=== PATIENT | male | born 1950 | race Caucasian/White ===

== ENCOUNTER 2017-11-19 12:42 | Emergency (ER) | payer MEDICARE, OTHER ==
[2017-11-19 13:13] LABS: BASO # 0.1 10^3/uL (0.0-0.2); BASO % 0.6 % (0.0-1.0); EOS % 0.5 % (0.0-3.0); IMMATURE GRANULOCYTE % 0.1 % (0-0); LYMPH # 1.6 10^3/uL (1.5-4.5); LYMPH % 19.6 % (24.0-44.0); MEAN CORPUSCULAR HEMOGLOBIN 30.6 pg (27.0-33.0); MEAN CORPUSCULAR HGB CONC 33.4 g/dl (32.0-36.5); MEAN CORPUSCULAR VOLUME 91.7 fl (80.0-96.0); MONO # 0.9 10^3/uL (0.0-0.8); MONO % 11.6 % (0.0-5.0); NEUTROPHILS # 5.4 10^3/uL (1.8-7.7); NEUTROPHILS % 67.6 % (36.0-66.0); PLATELET COUNT, AUTOMATED 262 10^3/uL (150-450); RED CELL DISTRIBUTION WIDTH 13.4 % (11.5-14.5)
[2017-11-19] MEDS: ONDANSETRON 4MG/2ML VIAL (J2405) IV (13:19)
[2017-11-19] MEDS: MORPHINE 4 MG/ML 1ML SYRINGE IV (13:19)
[2017-11-19 13:42] LABS: ANION GAP 8 MEQ/L (8-16); BLOOD UREA NITROGEN 10 MG/DL (7-18); CALCIUM LEVEL 8.9 MG/DL (8.8-10.2); CARBON DIOXIDE LEVEL 30 MEQ/L (21-32); CHLORIDE LEVEL 100 MEQ/L (98-107); CREATININE FOR GFR 0.87 MG/DL (0.70-1.30); GLOMERULAR FILTRATION RATE > 60.0 (>49); GLUCOSE, FASTING 185 MG/DL (80-110); POTASSIUM SERUM 3.4 MEQ/L (3.5-5.1); SODIUM LEVEL 138 MEQ/L (136-145)
[2017-11-19] MEDS: KETOROLAC 30 MG/ML VIAL (J1885) IV (14:15)
== END 2017-11-19 14:36 | disposition home or self-care (01) ==
LOC: M ED 12:42
DX: S46.912A Strain of unspecified muscle, fascia and tendon at shoulder and upper arm level, left arm, initial encounter (principal); X58.XXXA Exposure to other specified factors, initial encounter; Y92.9 Unspecified place or not applicable; Y93.9 Activity, unspecified; Z85.038 Personal history of other malignant neoplasm of large intestine; Z92.21 Personal history of antineoplastic chemotherapy; I51.9 Heart disease, unspecified; E11.9 Type 2 diabetes mellitus without complications; I10 Essential (primary) hypertension; E78.5 Hyperlipidemia, unspecified; Z87.891 Personal history of nicotine dependence; Z82.49 Family history of ischemic heart disease and other diseases of the circulatory system; Z79.84 Long term (current) use of oral hypoglycemic drugs; Z79.899 Other long term (current) drug therapy; Z91.041 Radiographic dye allergy status; Z91.89 Other specified personal risk factors, not elsewhere classified
CPT/HCPCS: J2405

== ENCOUNTER 2018-03-05 16:07 | Emergency (ER) | payer MEDICARE, OTHER ==
[2018-03-05] MEDS: NS 1,000 ML IV (16:45)
[2018-03-05 16:51] LABS: BASO % 0.4 % (0.0-1.0); EOS # 0.1 10^3/uL (0.0-0.50); HEMATOCRIT 46.7 % (42.0-52.0); HEMOGLOBIN 15.8 g/dl (13.5-17.5); IMMATURE GRANULOCYTE % 0.2 % (0-3.0); LYMPH # 2.3 10^3/uL (1.5-4.5); LYMPH % 25.5 % (24.0-44.0); MEAN CORPUSCULAR HEMOGLOBIN 31.5 pg (27.0-33.0); MEAN CORPUSCULAR HGB CONC 33.8 g/dl (32.0-36.5); MONO # 0.8 10^3/uL (0.0-0.8); MONO % 9.2 % (0.0-5.0); NEUTROPHILS # 5.7 10^3/uL (1.8-7.7); NEUTROPHILS % 63.7 % (36.0-66.0); PLATELET COUNT, AUTOMATED 257 10^3/uL (150-450); RED BLOOD COUNT 5.02 10^6/uL (4.30-6.10); RED CELL DISTRIBUTION WIDTH 13.5 % (11.5-14.5); WHITE BLOOD COUNT 8.9 10^3/uL (4.0-10.0)
[2018-03-05] MEDS: VERAPAMIL HCL 5 MG/2 ML VIAL IV ×2 (16:53→18:28)
[2018-03-05] MEDS: ASPIRIN 81 MG CHEW TABLET PO (16:53)
[2018-03-05 17:06] LABS: INR 1.13; PROTHROMBIN TIME 14.7 SECONDS (12.4-14.5)
[2018-03-05 17:23] LABS: ALBUMIN 4.1 GM/DL (3.2-5.2); ALKALINE PHOSPHATASE 75 U/L (45-117); ALT/SGPT 32 U/L (12-78); ANION GAP 7 MEQ/L (8-16); AST/SGOT 22 U/L (7-37); BILIRUBIN,DIRECT 0.2 MG/DL (0.0-0.2); BILIRUBIN,TOTAL 0.5 MG/DL (0.2-1.0); BLOOD UREA NITROGEN 22 MG/DL (7-18); CALCIUM LEVEL 9.3 MG/DL (8.8-10.2); CARBON DIOXIDE LEVEL 30 MEQ/L (21-32); CHLORIDE LEVEL 103 MEQ/L (98-107); CPK CREATINE PHOSPHOKINASE 241 U/L (39-308); CREATININE FOR GFR 1.09 MG/DL (0.70-1.30); GLOMERULAR FILTRATION RATE > 60.0 (>49); GLUCOSE, FASTING 118 MG/DL (70-100); POTASSIUM SERUM 3.5 MEQ/L (3.5-5.1); SODIUM LEVEL 140 MEQ/L (136-145); TOTAL PROTEIN 8.2 GM/DL (6.4-8.2); TROPONIN I < 0.02 NG/ML (< 0.10)
[2018-03-05 17:28] LABS: CK-MB VALUE MASS 3.7 NG/ML (<3.6); MB/CK RELATIVE INDEX 1.53 (< OR =4)
[2018-03-05] MEDS: DIGOXIN INJ 0.5 MG/2 ML AMP (J1160) IV (18:28)
== END 2018-03-05 20:31 | disposition home or self-care (01) ==
LOC: M ED 16:07
DX: I49.9 Cardiac arrhythmia, unspecified (principal); I48.0 Paroxysmal atrial fibrillation; I48.92 Unspecified atrial flutter; I10 Essential (primary) hypertension; Z82.49 Family history of ischemic heart disease and other diseases of the circulatory system; Z79.84 Long term (current) use of oral hypoglycemic drugs; Z79.899 Other long term (current) drug therapy; Z91.041 Radiographic dye allergy status; Z91.89 Other specified personal risk factors, not elsewhere classified
CPT/HCPCS: J1160

== ENCOUNTER → 2018-09-01 | Outpatient (CLI) | payer MEDICARE, OTHER ==
[2018-09-01 13:01] LABS: DIGOXIN LEVEL 0.9 NG/ML (0.5-2.0)
== END ==
LOC: M LAB 11:24
DX: I48.0 Paroxysmal atrial fibrillation (principal)
CPT/HCPCS: 80162

== ENCOUNTER → 2019-01-26 | Outpatient (CLI) | payer MEDICARE, OTHER ==
[~2019-01-26] MED LIST: /ADVA50050 IN; /ADVA50050 INH; /ESOM40CA OR; /ESOM40CA PO; /FEXO18TA OR; /FEXO18TA PO; /MOXI40TA OR; /QUIN20TA OR; /QUIN20TA PO; ACIDCAP; ACIDCAP OR; ACIDCAP PO; ALB INH; ALBU83IN INH; ALBUTEROL INH; ASPI325T PO; ASPI650T2 OR; ATROVENT; CARI1TAB7 PO; CELE1CAP88 PO; CEPH500C PO; CIAL20TA OR; COLA100C2 OR; COLA100C2 PO; COUM10TA PO; DARV100T OR; DEXTROMETHORPHAN PO; DIGI1TAB3 PO; DUO; DUONSOL INH; ENOX40SY SC; FISH1000 PO; LASI40TA9 PO; LEVA12INH INH; LOSA50TA88 PO; METF500T13 PO; MIRALEX; MIRALEX OR; NASONEX; NATU400T PO; PRED10TA2 OR; PRED20TA OR; PRED20TAB PO; PRED5TAB OR; SENN8.6T14 OR; SING10TA31 OR; SING10TA31 PO; SOMA350T OR; TESS100C OR; VERA120T OR; VERA120T PO; VICO5TAB PO; VIT D 2000 OR; VITA-182 PO; VITA400C OR; VITA500T PO; XARE20TA PO; [UNRECOGNIZED DRUG - CODE] PO
[2019-01-26 16:50] LABS: BASO % 0.3 % (0.0-1.0); EOS % 0.3 % (0.0-3.0); HEMATOCRIT 41.3 % (42.0-52.0); HEMOGLOBIN 13.1 g/dl (13.5-17.5); LYMPH # 1.9 10^3/uL (1.5-4.5); LYMPH % 19.5 % (24.0-44.0); MEAN CORPUSCULAR HEMOGLOBIN 29.6 pg (27.0-33.0); MEAN CORPUSCULAR HGB CONC 31.7 g/dl (32.0-36.5); MEAN CORPUSCULAR VOLUME 93.2 fl (80.0-96.0); MONO # 1.2 10^3/uL (0.0-0.8); MONO % 12.6 % (0.0-5.0); NEUTROPHILS # 6.5 10^3/uL (1.8-7.7); PLATELET COUNT, AUTOMATED 291 10^3/uL (150-450); RED BLOOD COUNT 4.43 10^6/uL (4.30-6.10); WHITE BLOOD COUNT 9.6 10^3/uL (4.0-10.0)
[2019-01-26 20:11] LABS: ERYTHROCYTE SEDIMENTATION RATE 43 mm/hr (0-20)
== END ==
LOC: M LAB 16:08
PROVIDERS: ATTEND Orthopaedic Surgery
DX: L03.113 Cellulitis of right upper limb (principal)

== ENCOUNTER 2020-01-10 10:00 | Day surgery (SDC) | payer MEDICARE, OTHER ==
[~2020-01-10] VITALS: Ht 177.8 cm; Wt 140.3 kg
[~2020-01-10 10:00] MED LIST changes: -/ADVA50050 IN; -/ADVA50050 INH; -/ESOM40CA OR; -/ESOM40CA PO; -/MOXI40TA OR; -/QUIN20TA OR; -/QUIN20TA PO; +ACCU1TAB2 OR; +ACCU1TAB2 PO; +ADV500INH INH; +ADVA1AER2 IN; +ADVA1AER2 INH; +ALLE180T33 PO; +ASPI-1 PO; -ASPI325T PO; +ATEN25TA PO; +AVEL1TAB2 OR; +CLEAPOW10 PO; +DIGO0.259 PO; -ENOX40SY SC; +FERR325T3 PO; +FLEC150T PO; +HM V4000 PO; +HYDR-3713 PO; +LIDOCAINE 2% INJ 100 MG/5 ML SDV (FOR ANES.) As Ordered ONE; +LOVA10TA PO; +LOVE1INJ SC; +MM S100C PO; +MOME50SP; +NEXI1CAP3 OR; +NEXI1CAP3 PO; +NEXI40CA PO; +NS 1,000 ML IV ONE; +OPTI0.5D5 OP; +PROAAER10 INH; +SING10TA32 PO; +SOMA350T PO; +SPIR-10 PO; +VERA120C PO; +VERA120T9 PO; +VITA100T29 PO; +VITA100T59 PO; +VITA400T26 PO; +ZOLO100T PO; +propofoL 500 MG/50 ML VIAL As Ordered ONE
--- NOTE | 2020-01-10 12:14 | ROOR ---
Patient Name: Ambrosio Aguillon Procedure Date: 01/10/2020 11:46 AM Date of : 1950 Age: 69 Room: [facility] Gender: Male Note Status: Finalized Procedure: Upper Endoscopy + Biopsies Indications: Unexplained iron deficiency anemia Providers: Newton Saunders MD Referring MD: Cole Gregorio MD Requesting Provider: Medicines: Monitored Anesthesia Care Complications: No immediate complications. Procedure: Pre-Anesthesia Assessment: - The heart rate, respiratory rate, oxygen saturations, blood pressure, adequacy of pulmonary ventilation, and response to care were monitored throughout the procedure. The Endoscope was introduced through the mouth, and advanced to the second part of duodenum. The upper GI endoscopy was accomplished without difficulty. The patient tolerated the procedure well. Findings: The Z-line was regular and was found 40 cm from the incisors. Multiple biopsies were obtained with cold forceps for evaluation to rule out Teague's Esophagus randomly at the gastroesophageal junction. Multiple small pedunculated and sessile fundic gland polyps with no bleeding and no stigmata of recent bleeding were found on the greater curvature of the stomach. Biopsies were taken with a cold forceps for Helicobacter pylori testing. The exam of the duodenum was otherwise normal. Biopsies for histology were taken with a cold forceps in the first portion of the duodenum for evaluation of celiac disease. The exam was otherwise without abnormality. Impression: - Z-line regular, 40 cm from the incisors. - Multiple fundic gland polyps. Resected and retrieved. Biopsied. - The examination was otherwise normal. - Multiple biopsies were obtained at the gastroesophageal junction. - Biopsies were taken with a cold forceps for evaluation of celiac disease. - The examination was otherwise normal. Recommendation: - Patient has a contact number available for emergencies. The signs and symptoms of potential delayed complications were discussed with the patient. Return to normal activities tomorrow. Written discharge instructions were provided to the patient. - High fiber diet. - Discharge patient to home. - Continue present medications. - Await pathology results. - Telephone GI clinic for pathology results in 1 week. - Return to referring physician. - The findings and recommendations were discussed with the patient's family. Newton Saunders MD Newton Saunders MD 01/10/2020 12:13:45 PM Electronically signed by Newton Saunders MD Number of Addenda: 0 Note Initiated On: 01/10/2020 11:46 AM Estimated Blood Loss: Estimated blood loss: none.
[2020-01-10] MEDS ORDERED: propofoL 200 MG/20 ML VIAL As Ordered ONE (12:41)
--- NOTE | 2020-01-10 13:03 | ROOR ---
Patient Name: Ambrosio Aguillon Procedure Date: 01/10/2020 11:41 AM Date of : 1950 Age: 69 Room: [facility] Gender: Male Note Status: Finalized Procedure: Total Colonoscopy to Cecum + Cold + Hot Snare Polypectomy + Hemoclips Indications: Unexplained iron deficiency anemia Providers: Newton Saunders MD Referring MD: Cole Gregorio MD Requesting Provider: Medicines: Monitored Anesthesia Care Complications: No immediate complications. Procedure: Pre-Anesthesia Assessment: - The heart rate, respiratory rate, oxygen saturations, blood pressure, adequacy of pulmonary ventilation, and response to care were monitored throughout the procedure. The Colonoscope was introduced through the anus and advanced to the cecum, identified by appendiceal orifice and ileocecal valve. The colonoscopy was performed without difficulty. The patient tolerated the procedure well. The quality of the bowel preparation was good. Findings: The perianal and digital rectal examinations were normal. Non-bleeding internal hemorrhoids were found during retroflexion. The hemorrhoids were small and Grade I (internal hemorrhoids that do not prolapse). Medium sized rectal varices were found. Scattered small-mouthed diverticula were found in the recto-sigmoid colon, sigmoid colon and descending colon. A small polyp was found in the splenic flexure. The polyp was sessile. The polyp was removed with a cold snare. Resection and retrieval were complete. A small polyp was found in the hepatic flexure. The polyp was sessile. The polyp was removed with a cold snare. Resection and retrieval were complete. A large polyp was found in the cecum. The polyp was semi-pedunculated. The polyp was removed with a cold snare. Resection and retrieval were complete. To prevent bleeding after the polypectomy, two hemostatic clips were successfully placed (MR conditional). There was no bleeding at the end of the procedure. Two semi-pedunculated polyps were found in the mid ascending colon. The polyps were large in size. These polyps were removed with a hot snare. Resection and retrieval were complete. To prevent bleeding after the polypectomy, six hemostatic clips were successfully placed (MR conditional). There was no bleeding at the end of the procedure. The exam was otherwise without abnormality on direct and retroflexion views. Impression: - Non-bleeding internal hemorrhoids. - Rectal varices. - Diverticulosis in the recto-sigmoid colon, in the sigmoid colon and in the descending colon. - One small polyp at the splenic flexure, removed with a cold snare. Resected and retrieved. - One small polyp at the hepatic flexure, removed with a cold snare. Resected and retrieved. - One large polyp in the cecum, removed with a cold snare. Resected and retrieved. Clips (MR conditional) were placed. - Two large polyps in the mid ascending colon, removed with a hot snare. Resected and retrieved. Clips (MR conditional) were placed. - The examination was otherwise normal on direct and retroflexion views. - The exam was otherwise normal to the cecum. Recommendation: - Patient has a contact number available for emergencies. The signs and symptoms of potential delayed complications were discussed with the patient. Return to normal activities tomorrow. Written discharge instructions were provided to the patient. - Resume previous diet. - Discharge patient to home. - Continue present medications. - Resume Xarelto (rivaroxaban) at prior dose today. - Await pathology results. - Telephone GI clinic for pathology results in 1 week. - Repeat colonoscopy for surveillance based on pathology results. - Return to referring physician. - The findings and recommendations were discussed with the patient's family. Newton Saunders MD Newton Saunders MD 01/10/2020 1:02:17 PM Electronically signed by Newton Saunders MD Number of Addenda: 0 Note Initiated On: 01/10/2020 11:41 AM Estimated Blood Loss: Estimated blood loss: none.
[2020-01-10 13:25] VITALS: BP 161/82
== END 2020-01-10 13:45 | disposition home or self-care (01) ==
LOC: M OPP 10:00
PROVIDERS: ATTEND Internal Medicine Gastroenterology
DX: K57.30 Diverticulosis of large intestine without perforation or abscess without bleeding (principal); K63.5 Polyp of colon; K31.7 Polyp of stomach and duodenum; D50.9 Iron deficiency anemia, unspecified; K21.9 Gastro-esophageal reflux disease without esophagitis; E11.9 Type 2 diabetes mellitus without complications; Z79.84 Long term (current) use of oral hypoglycemic drugs; Z79.891 Long term (current) use of opiate analgesic; Z79.899 Other long term (current) drug therapy; Z88.8 Allergy status to other drugs, medicaments and biological substances; Z91.041 Radiographic dye allergy status; Z91.048 Other nonmedicinal substance allergy status

== ENCOUNTER → 2020-04-24 | Outpatient (CLI) | payer MEDICARE, OTHER ==
[~2020-04-24] MED LIST changes: -LIDOCAINE 2% INJ 100 MG/5 ML SDV (FOR ANES.) As Ordered ONE; -NS 1,000 ML IV ONE; -propofoL 500 MG/50 ML VIAL As Ordered ONE
[2020-04-24 16:22] LABS: HEMATOCRIT 39.7 % (42.0-52.0); HEMOGLOBIN 12.9 g/dl (13.5-17.5); MEAN CORPUSCULAR HEMOGLOBIN 29.5 pg (27.0-33.0); MEAN CORPUSCULAR HGB CONC 32.5 g/dl (32.0-36.5); MEAN CORPUSCULAR VOLUME 90.6 fl (80.0-96.0); PLATELET COUNT, AUTOMATED 304 10^3/uL (150-450); RED BLOOD COUNT 4.38 10^6/uL (4.30-6.10); WHITE BLOOD COUNT 7.6 10^3/uL (4.0-10.0)
[2020-04-24 16:49] LABS: ALBUMIN 3.7 GM/DL (3.2-5.2); ALT/SGPT 30 U/L (12-78); BILIRUBIN,TOTAL 0.5 MG/DL (0.2-1.0); BLOOD UREA NITROGEN 15 MG/DL (7-18); CALCIUM LEVEL 9.1 MG/DL (8.8-10.2); CARBON DIOXIDE LEVEL 29 MEQ/L (21-32); CHLORIDE LEVEL 103 MEQ/L (98-107); CREATININE FOR GFR 0.84 MG/DL (0.70-1.30); GLOMERULAR FILTRATION RATE > 60.0 (>49); GLUCOSE, FASTING 101 MG/DL (70-100); MAGNESIUM LEVEL 2.1 MG/DL (1.8-2.4); NT-PRO BNP 31 PG/ML (<125); POTASSIUM SERUM 4.1 MEQ/L (3.5-5.1); SODIUM LEVEL 136 MEQ/L (136-145); TOTAL PROTEIN 7.4 GM/DL (6.4-8.2)
== END ==
LOC: M WUC 14:59
PROVIDERS: ATTEND Internal Medicine Cardiovascular Disease
DX: I48.0 Paroxysmal atrial fibrillation (principal); I11.9 Hypertensive heart disease without heart failure

== ENCOUNTER → 2020-05-24 | Outpatient (CLI) | payer MEDICARE, OTHER ==
[2020-05-24 16:46] LABS: ALBUMIN 3.7 GM/DL (3.2-5.2); BLOOD UREA NITROGEN 17 MG/DL (7-18); CALCIUM LEVEL 9.2 MG/DL (8.8-10.2); CARBON DIOXIDE LEVEL 25 MEQ/L (21-32); CHLORIDE LEVEL 105 MEQ/L (98-107); CREATININE FOR GFR 1.09 MG/DL (0.70-1.30); DIGOXIN LEVEL 0.9 NG/ML (0.5-2.0); GLOMERULAR FILTRATION RATE > 60.0 (>49); GLUCOSE, FASTING 135 MG/DL (70-100); MAGNESIUM LEVEL 2.1 MG/DL (1.8-2.4); PHOSPHORUS LEVEL 3.7 MG/DL (2.5-4.9); POTASSIUM SERUM 4.2 MEQ/L (3.5-5.1); SODIUM LEVEL 139 MEQ/L (136-145)
== END ==
LOC: M WUC 11:51
PROVIDERS: ATTEND Internal Medicine Cardiovascular Disease
DX: I49.3 Ventricular premature depolarization (principal); R94.31 Abnormal electrocardiogram [ECG] [EKG]; I11.9 Hypertensive heart disease without heart failure; I48.0 Paroxysmal atrial fibrillation

== ENCOUNTER 2020-08-01 10:09 | Inpatient (IN) | payer MEDICARE, OTHER ==
[~2020-08-01] VITALS: Ht 177.8 cm; Wt 142.2 kg
[2020-08-01] MEDS ORDERED: BYDU2INJ7 SC (11:53)
[2020-08-01] MEDS ORDERED: CIAL20TA PO (11:53)
[2020-08-01] MEDS ORDERED: METF-838 PO (11:53)
[2020-08-01] MEDS ORDERED: MECL1TAB31 PO (11:53)
[2020-08-01] MEDS ORDERED: SENO8.6T5 PO (11:53)
[2020-08-01] MEDS ORDERED: TIZA4TAB4 PO (11:53)
[2020-08-01 12:05] LABS: HEMATOCRIT 38.5 % (42.0-52.0); HEMOGLOBIN 12.1 g/dl (13.5-17.5); MEAN CORPUSCULAR HEMOGLOBIN 28.9 pg (27.0-33.0); MEAN CORPUSCULAR HGB CONC 31.4 g/dl (32.0-36.5); MEAN CORPUSCULAR VOLUME 91.9 fl (80.0-96.0); PLATELET COUNT, AUTOMATED 280 10^3/uL (150-450); RED BLOOD COUNT 4.19 10^6/uL (4.30-6.10); WHITE BLOOD COUNT 10.8 10^3/uL (4.0-10.0)
[2020-08-01 12:33] LABS: ALBUMIN 3.2 GM/DL (3.2-5.2); ALT/SGPT 20 U/L (12-78); BILIRUBIN,TOTAL 0.9 MG/DL (0.2-1.0); BLOOD UREA NITROGEN 17 MG/DL (7-18); CALCIUM LEVEL 9.1 MG/DL (8.8-10.2); CARBON DIOXIDE LEVEL 31 MEQ/L (21-32); CHLORIDE LEVEL 100 MEQ/L (98-107); CREATININE FOR GFR 1.11 MG/DL (0.70-1.30); GLOMERULAR FILTRATION RATE > 60.0 (>49); GLUCOSE, FASTING 140 MG/DL (70-100); LIPASE 113 U/L (73-393); POTASSIUM SERUM 3.6 MEQ/L (3.5-5.1); SODIUM LEVEL 135 MEQ/L (136-145); TOTAL PROTEIN 7.4 GM/DL (6.4-8.2)
[2020-08-01 12:35] LABS: ERYTHROCYTE SEDIMENTATION RATE 73 mm/hr (0-20)
[2020-08-01] MEDS ORDERED: HYDROMORPHONE HCL 0.5 MG/ 0.5 ML SYRINGE (J1170 PER 1) IV ONE (13:45)
--- NOTE | 2020-08-01 14:23 | REPVR ---
PROCEDURE INFORMATION: Exam: CT Chest Without Contrast Exam date and time: 08/01/2020 2:03 PM Age: 70 years old Clinical indication: Pain TECHNIQUE: Imaging protocol: Computed tomography of the chest without contrast. 3D rendering (Not supervised by radiologist): MIP and/or 3D reconstructed images were created by the technologist. Radiation optimization: All CT scans at this facility use at least one of these dose optimization techniques: automated exposure control; mA and/or kV adjustment per patient size (includes targeted exams where dose is matched to clinical indication); or iterative reconstruction. COMPARISON: CR PORTABLE CHEST X-RAY 08/01/2020 11:30 AM FINDINGS: Limitations: Evaluation is somewhat limited by lack of IV contrast. Lungs: The lungs demonstrate minor scattered scarring. They are otherwise clear. The central airways appear patent. Pleural space: Unremarkable. No pneumothorax. No pleural effusion. Heart: Coronary artery calcifications are noted. No significant pericardial effusion. Aorta: The thoracic aorta is nonaneurysmal. Atherosclerotic vascular calcifications are noted. Lymph nodes: No gross pathologic lymphadenopathy. Liver: The liver is fatty in density. Kidneys and ureters: The right kidney contains a 3 mm nonobstructing stone. Bones/joints: Degenerative changes involve the spine and left shoulder. Soft tissues: Subcutaneous varicosities are present over the chest. Other findings: Surgical clips are noted in the retroperitoneum of the upper abdomen. IMPRESSION: 1. No evidence for acute pulmonary disease. 2. Coronary artery calcifications. 3. Fatty liver. Electronically signed by: Ambrosio Mcmanus On 08/01/2020 14:23:12 PM
--- NOTE | 2020-08-01 14:30 | REPVR ---
PROCEDURE INFORMATION: Exam: CT Cervical Spine Without Contrast Exam date and time: 08/01/2020 2:03 PM Age: 70 years old Clinical indication: Neck pain; Additional info: Chest pain/ back pain TECHNIQUE: Imaging protocol: Computed tomography images of the cervical spine without contrast. Radiation optimization: All CT scans at this facility use at least one of these dose optimization techniques: automated exposure control; mA and/or kV adjustment per patient size (includes targeted exams where dose is matched to clinical indication); or iterative reconstruction. COMPARISON: No relevant prior studies available. FINDINGS: Vertebrae: Vertebral body heights are intact. Straightening of the cervical lordotic curve could be secondary to muscle spasm or positioning. Alignment is otherwise maintained. No acute fracture is identified. Discs/Spinal canal/Neural foramina: There is multilevel spondylosis with variable osteophytic encroachment of several neural foramina. CT is not optimal for the evaluation of the discs, neural foramina or spinal canal or cord. There appears to be spinal stenosis at C5-C6 and C6-C7. Soft tissues: There is degenerative ossification of the ligamentum nuchae. The prevertebral soft tissues are not significantly swollen. Lungs: The visualized lung apices are clear. Pleural space: No apical pneumothorax is identified. IMPRESSION: 1. Straightening of the cervical lordotic curve, could be secondary to muscle spasm or positioning. 2. Spondylosis with the appearance of multilevel spinal stenosis. The discs and integrity of the cord could be better evaluated by means of MRI as clinically appropriate. Electronically signed by: Ambrosio Mcmanus On 08/01/2020 14:30:30 PM
[2020-08-01 15:25] LABS: BASO % 0.4 % (0.0-1.0); EOS % 0.3 % (0.0-3.0); LYMPH % 9.1 % (24.0-44.0); MONO # 1.2 10^3/uL (0.0-0.8); NEUTROPHILS # 8.8 10^3/uL (1.5-8.5); NEUTROPHILS % 78.9 % (36.0-66.0)
[2020-08-01] MEDS ORDERED: HYDROMORPHONE HCL 0.5 MG/ 0.5 ML SYRINGE (J1170 PER 1) IV PRN (16:45)
[2020-08-01] MEDS ORDERED: ACETAMINOPHEN TAB 650MG DOSE (2X325MG) PO ONE (16:45)
[2020-08-01] MEDS ORDERED: PIPERACILLIN/TAZOBACTAM SOD 3.375 GM in D5W MINI-BAG PLUS 50 ML IV ONE (17:00)
[2020-08-01] MEDS ORDERED: DIGOXIN 0.25 MG TAB PO ONE (17:30)
[2020-08-01] MEDS ORDERED: GLUCAGON INJ 1MG VIAL SC PRN ×2 (17:45)
[2020-08-01] MEDS ORDERED: GLUCOSE 4GM CHEW TABLET PO PRN ×2 (17:45)
[2020-08-01] MEDS ORDERED: DEXTROSE 50% 50 ML SYRINGE IV PRN ×2 (17:45)
[2020-08-01] MEDS ORDERED: ASCO500T PO (17:51)
[2020-08-01] MEDS ORDERED: FURO40TA2 PO (17:52)
[2020-08-01] MEDS ORDERED: D31000TA2 PO (17:52)
[2020-08-01] MEDS ORDERED: FLEC1TAB PO (17:52)
[2020-08-01] MEDS ORDERED: CALA240T PO (17:57)
[2020-08-01] MEDS ORDERED: PERCOCET 5MG/325MG TAB PO PRN ×2 (18:00)
[2020-08-01] MEDS ORDERED: CYCLOBENZAPRINE 5MG TABLET PO PRN (18:00)
[2020-08-01] MEDS ORDERED: SENOKOT S TAB PO PRN (18:15)
[2020-08-01] MEDS ORDERED: MECLIZINE 25 MG TABLET PO PRN (18:15)
[2020-08-01] MEDS: cefTRIAXone SOD 2 GM in D5W MINI-BAG PLUS 50 ML IV SCH (18:40)
[2020-08-01] MEDS ORDERED: VANCOMYCIN HCL 1,000 MG, VIAL MATE ADAPTER 1 EACH in D5W 250 ML IV ONE ×2 (19:30→21:00)
[2020-08-01] MEDS: HumaLOG INSULIN (NovoLOG) PER UNIT SC SCH (21:00)
[2020-08-01] MEDS: HYDROmorphone (DILAUDID) 4 MG TAB PO PRN (21:20)
[2020-08-01 22:03] VITALS: BP 146/96
[2020-08-01] MEDS: DOCUSATE SODIUM 100 MG CAP PO SCH (22:48)
[2020-08-01] MEDS: MONTELUKAST 10 MG TAB PO SCH (22:48)
[2020-08-01] MEDS: FUROSEMIDE 40 MG TAB PO SCH (22:48)
[2020-08-01] MEDS: RIVAROXABAN 20 MG TAB (XARELTO) PO SCH (22:49)
[2020-08-01] MEDS: FLECAINIDE 50MG TABLET PO SCH (22:49)
[2020-08-01] MEDS: FERROUS SULFATE 325MG TAB PO SCH (22:49)
[2020-08-01] MEDS: VERAPAMIL 120 MG SR TAB PO SCH (22:50)
[2020-08-01] MEDS ORDERED: SLF 3 ML SYR IV PRN (23:30)
[2020-08-02] VITALS: BP 136/64
[2020-08-02] MEDS: VANCOMYCIN HCL 1,000 MG, VIAL MATE ADAPTER 1 EACH in D5W 250 ML IV SCH ×3 (01:29→19:19)
[2020-08-02] MEDS: ACETAMINOPHEN TAB 650MG DOSE (2X325MG) PO PRN (01:30)
[2020-08-02] MEDS: VANCOMYCIN HCL 500 MG in D5W MINI-BAG PLUS 100 ML IV SCH ×3 (03:22→20:16)
[2020-08-02] MEDS: HYDROmorphone (DILAUDID) 4 MG TAB PO PRN ×4 (03:23→23:04)
[2020-08-02 04:00] VITALS: BP 138/68
[2020-08-02 04:43] LABS: BASO % 0.3 % (0.0-1.0); EOS % 0.3 % (0.0-3.0); HEMATOCRIT 36.5 % (42.0-52.0); HEMOGLOBIN 11.7 g/dl (13.5-17.5); LYMPH # 1.4 10^3/uL (1.5-5.0); LYMPH % 13.9 % (24.0-44.0); MEAN CORPUSCULAR HGB CONC 32.1 g/dl (32.0-36.5); MEAN CORPUSCULAR VOLUME 90.6 fl (80.0-96.0); MONO # 1.3 10^3/uL (0.0-0.8); MONO % 12.1 % (0.0-5.0); NEUTROPHILS # 7.6 10^3/uL (1.5-8.5); PLATELET COUNT, AUTOMATED 273 10^3/uL (150-450); RED BLOOD COUNT 4.03 10^6/uL (4.30-6.10); WHITE BLOOD COUNT 10.4 10^3/uL (4.0-10.0)
[2020-08-02 05:07] LABS: BLOOD UREA NITROGEN 14 MG/DL (7-18); CALCIUM LEVEL 8.4 MG/DL (8.8-10.2); CARBON DIOXIDE LEVEL 29 MEQ/L (21-32); CHLORIDE LEVEL 101 MEQ/L (98-107); CREATININE FOR GFR 1.03 MG/DL (0.70-1.30); GLOMERULAR FILTRATION RATE > 60.0 (>49); GLUCOSE, FASTING 162 MG/DL (70-100); POTASSIUM SERUM 3.3 MEQ/L (3.5-5.1); SODIUM LEVEL 136 MEQ/L (136-145)
[2020-08-02] MEDS: SLF 3 ML SYR IV SCH ×3 (05:57→21:47)
[2020-08-02] MEDS: MIRALAX *UNIT DOSE* 17GM PACKET PO SCH (08:48)
[2020-08-02] MEDS: VITAMIN D 1,000 INTERNATIONAL UNITS TABLET PO SCH (08:48)
[2020-08-02] MEDS: SERTRALINE 100 MG TAB PO SCH (08:48)
[2020-08-02] MEDS: DIGOXIN 0.25 MG TAB PO SCH (08:50)
[2020-08-02] MEDS: ASCORBIC ACID 500 MG TAB PO SCH (08:50)
[2020-08-02] MEDS: FUROSEMIDE 40 MG TAB PO SCH ×2 (08:51→21:46)
[2020-08-02] MEDS: PANTOPRAZOLE 40MG TAB (PROTONIX) PO SCH (08:51)
[2020-08-02] MEDS: FERROUS SULFATE 325MG TAB PO SCH ×2 (08:52→21:47)
[2020-08-02] MEDS: LOSARTAN 50MG TABLET PO SCH (08:54)
[2020-08-02] MEDS: SPIRONOLACTONE 12.5MG PER 1/2 TABLET PO SCH (08:55)
[2020-08-02] MEDS ORDERED: PILL CUTTER 1 EACH XX PRN (09:00)
[2020-08-02] MEDS: CYCLOBENZAPRINE 10MG TABLET PO SCH ×3 (09:09→21:46)
[2020-08-02] MEDS: FEXOFENADINE 60 MG TAB PO SCH (09:10)
[2020-08-02] MEDS: FLECAINIDE 50MG TABLET PO SCH ×2 (09:37→21:47)
[2020-08-02] MEDS: VERAPAMIL 120 MG SR TAB PO SCH ×2 (09:37→21:47)
[2020-08-02] MEDS: HumaLOG INSULIN (NovoLOG) PER UNIT SC SCH ×4 (09:37→20:16)
--- NOTE | 2020-08-02 10:19 | REPVR ---
PROCEDURE INFORMATION: Exam: XR Right Shoulder Exam date and time: 08/02/2020 8:53 AM Age: 70 years old Clinical indication: Pain; Shoulder; Bilateral; Additional info: Bl shoulder pain limited rom TECHNIQUE: Imaging protocol: XR Right shoulder. Views: 2 or more views. COMPARISON: 1. CT Chest without contrast 08/01/2020 1:58:49 PM 2. CR - PORTABLE CHEST X-RAY 08/01/2020 11:30:31 AM 3. CR - Chest, 2 view PA, Lat 04/02/2016 5:02:54 PM 4. AR - PORTABLE CHEST X-RAY 11/19/2017 1:29:49 PM 5. CR - PORTABLE CHEST X-RAY 03/05/2018 4:45:30 PM FINDINGS: Bones/joints: No acute fracture. No dislocation. There is moderate to severe osteoarthritis at the right glenohumeral joint. Severe degenerative change at the acromioclavicular joint, with large amount of hypertrophic calcification dorsally at the acromioclavicular joint. Lungs: Included right lung is clear. Soft tissues: Normal. IMPRESSION: 1. No acute fracture. 2. Degenerative changes as above. PROCEDURE INFORMATION: Exam: XR Left Shoulder Exam date and time: 08/02/2020 8:53 AM Age: 70 years old Clinical indication: Pain; Shoulder; Bilateral; Additional info: Bl shoulder pain limited rom TECHNIQUE: Imaging protocol: XR Left shoulder. Views: 2 or more views. COMPARISON: 1. CT Chest without contrast 08/01/2020 1:58:49 PM 2. CR - PORTABLE CHEST X-RAY 08/01/2020 11:30:31 AM 3. CR - Chest, 2 view PA, Lat 04/02/2016 5:02:54 PM 4. AR - PORTABLE CHEST X-RAY 11/19/2017 1:29:49 PM 5. CR - PORTABLE CHEST X-RAY 03/05/2018 4:45:30 PM FINDINGS: Bones/joints: No acute fracture. No dislocation. There is severe osteoarthritis at the glenohumeral joint with [id number] configuration, large osteophytes, mixed subchondral sclerosis and cystic change, and mild chronic flattening at the medial aspect of the humeral head. Chondrocalcinosis is also seen at the shoulder joint. The lucency in the proximal humerus just distal to the subchondral sclerosis is not as well demonstrated radiographically compared to CT. The sclerotic focus is similar in appearance dating back to 04/02/2016 but degenerative changes at the left shoulder joint have significantly progressed since that date. There is severe osteoarthritis at the acromioclavicular joint with dystrophic calcifications. A 7 mm sclerotic focus projects over the scapular body inferior medial to the coracoid process, surrounded by a 2.6 cm slightly lucent area. This region corresponds to a corticated body with central sclerotic focus anterior to the scapula on CT chest from earlier today, with similar dimensions. Soft tissues: Normal. IMPRESSION: 1. No acute fracture. 2. Significant progression of osteoarthritis at the glenohumeral joint with multiple intra-articular bodies, the largest of which is located inferior medial to the coracoid process containing a small sclerotic focus which is most likely a bone island in the absence of a known primary tumor. 3. Severe osteoarthritis with dystrophic calcification at the acromioclavicular joint. 4. The lucency in the proximal humerus just distal to subchondral sclerosis is not well demonstrated radiographically compared to the prior CT. This could be better evaluated by dedicated shoulder MR. Electronically signed by: Lina Rolle On 08/02/2020 10:19:45 AM
[2020-08-02 12:00] VITALS: BP 146/78
[2020-08-02] MEDS ORDERED: POTASSIUM CHLORIDE 10 MEQ SR TABLET PO ONE (13:00)
[2020-08-02 16:00] VITALS: BP 158/74
[2020-08-02] MEDS: cefTRIAXone SOD 2 GM in D5W MINI-BAG PLUS 50 ML IV SCH (17:51)
[2020-08-02 20:00] VITALS: BP 130/61
--- NOTE | 2020-08-02 21:32 | HPE ---
DATE OF ADMISSION: 08/01/2020 CHIEF COMPLAINT: Neck pain, back pain, neck stiffness. 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 He was in his usual state of health until three days ago when he developed shoulder and upper back pain that started on Friday. The patient took tizanidine three times a day and hydrocodone in between 2-3 hours after taking tizanidine throughout the day, complaints of chills about two nights ago, and night sweats last night, with no upper or lower extremity weakness. 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 He usually gets physical therapy twice a week for his upper back, but was unable to do this due to COVID. He started to have right burning sensation in the neck, especially when he turns it to the right and left. He was then able to resume physical therapy, but at a different group, and did that for several weeks. A few days ago, the patient was having more pain in his left shoulder, which he said was throbbing. He then started doing his physical therapy exercises and using a Thera Cane, and was pulling on the door, and he felt a sharp knife going through and then it moved all over his shoulders and upper back and back of the neck. The patient was told that he has bilateral shoulder pain with bone spurs that were eating away at the joint. He usually sees orthopedic surgeon and has been doing virtual telemedicine. The last one was in the spring with the next appointment in September. The patient presented to the emergency room due to worsening neck and shoulder pain. He was found to have a fever of 101.1. CT of the chest without contrast showed that the left shoulder had degenerative disease, large osteochondral body, anteriorly sizable partially visualized lucent focus in the humeral head, which may be a degenerative cyst. Dedicated imaging recommended. CT of the chest was negative, no evidence of acute pulmonary disease. Cervical spine CT showed straightening of the cervical lordotic curve due to muscle spasm or positioning, spondylosis, appearance of multilevel spinal stenosis; disk and integrity of the cord could be evaluated by MRI. Due to prior metal clips from his previous surgeries, MRI could not be performed. Hospitalist was called to admit for back pain and fever. UA was negative. Chest x-ray was negative. Blood cultures obtained. COVID is still pending, but no COVID exposure. 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 * Chronic obstructive pulmonary disease. * Obstructive sleep apnea. * Morbid obesity, BMI 45. * Obstructive sleep apnea on BiPAP. * Neuropathy due to multiple diskectomies and left shoulder bone spur. * Asthma. * Bronchitis. * New onset of diabetes. * Appendectomy 1960. * Back surgery L5-S1, L3-L4. * Left inferior turbinate surgery. * Anal fissure surgery. * Atrial fibrillation on chronic anticoagulation. * Metal clamp around vena cava. MRI could not be done. * Multiple deep vein thromboses. ALLERGIES: IODINE, GIVING RASH AND PRURITUS. CONTRAST MEDIA. TAPE. HOME MEDICATIONS: * Albuterol two puffs inhaled as needed. * Ascorbic acid 500 mg daily. * Vitamin D 2000 units daily. * Digoxin 250 mcg daily. * Colace 200 mg nightly at bedtime. * Nexium 40 mg daily. * Ferrous sulfate 325 mg b.i.d. * Fexofenadine 180 mg daily. * Lasix 40 mg every evening, 80 mg every morning. * Hydrocodone one tablet q.6 h. as needed. * Losartan 50 mg daily. * Lovastatin 10 mg twice a week. * Meclizine 25 mg t.i.d. * Metformin 500 mg daily. * Mometasone one spray as needed. * Montelukast 10 mg nightly at bedtime. * Polyethylene 17 grams daily. * Xarelto 20 mg nightly at bedtime. * Advair 500 one puff inhaled b.i.d. * Senokot 8.6 b.i.d. as needed. * Zoloft 100 mg daily. * Spironolactone 12.5 mg daily. * Tizanidine 4 mg t.i.d. * Verapamil 240 mg b.i.d. * Flecainide 100 mg b.i.d. * Vitamin E 400 daily. * Cialis 20 mg as directed. * Pyridoxine 100 mg b.i.d. * Glycerine Refresh eye drop daily. * Exenatide 2 mg subcutaneous every 7 days. 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 The patient is a full code. REVIEW OF SYSTEMS: Per HPI. The 12-point system is otherwise negative. PHYSICAL EXAMINATION: VITAL SIGNS: Temperature 101.1, pulse 97, respiratory rate 19, blood pressure 153/75, 95% on room air. GENERAL: The patient has benign essential tremors, has shaking tremors in the bilateral upper and lower extremities. NECK: No JVD or thyromegaly. No cervical lymphadenopathy. HEENT: Dry mucous membranes. Anicteric, no jaundice. Pupils round and reactive. No JVD. LUNGS: Diminished, but clear to auscultation. No wheezing, rales, or rhonchi. HEART: S1, S2, sinus tachycardia. No murmurs, rubs, or gallops. ABDOMEN: Obese, soft, nontender, nondistended. EXTREMITIES: Trace lower extremity edema bilaterally. BACK: The patient has a lipoma in the back of the neck. There is no tenderness in the cervical, thoracic. No pain or irritation with flexion or extension of the neck. Lateral movements causes spasms on the right shoulder. The patient has tenderness on palpation of the bilateral shoulders, no erythema, no obvious effusion that is noted. LABORATORY DATA: * White count 10.8, hemoglobin 12, hematocrit 38, platelet count 280. Sodium 135, potassium 3.6, chloride 100, bicarbonate 31, BUN 17, creatinine 1.11, glucose 140, calcium 9.1, total bilirubins 0.9, AST 14, ALT 20, CRP 14, total proteins 7.4, albumin 3.2, lipase 113. Urinalysis showed 4 WBCs, negative leukocyte esterase, nitrate, negative bacteria. Serology COVID-19 and MRSA are both pending. Blood cultures are pending. * CT of the chest shows no acute cardiopulmonary disease. * CT of the cervical spine shows straightening of the cervical lordotic curve secondary to muscle spasm or positioning, spondylosis with multilevel spinal stenosis disk. Integrity of cord could be evaluated by MRI as clinically appropriate. ASSESSMENT: This is a 70-year-old male with a history of chronic atrial fibrillation on flecainide and diltiazem, Xarelto 20 mg nightly at bedtime, follows with Dr. Short, prior history of testicular cancer with recurrence in the vena cava requiring multiple surgeries, as well as occlusion of the vena cava requiring metal clamp placement, multiple surgeries, laminectomies in the and of the lumbosacral spine, orchiectomy, hypertension, vena cava occlusion, multiple DVTs, COPD, KUNAL, bronchitis, obstructive sleep apnea on chronic CPAP, morbid obesity, type 2 diabetes with metabolic syndrome. The patient presents to the emergency room with fever today, but a three day history of pain in the bilateral shoulders along with pain in the back of the neck. Cervical spine CT was negative. Chest CT was negative. UA was negative. The patient is admitted as an inpatient with the following issues: * Fever. * Chronic neck and back pain. * History of degenerative disk disease in the bilateral shoulders. * History of degenerative disk disease of the cervical and thoracic spines. * History of testicular cancer with recurrence. * Vena cava occlusion requiring metal clamp around the vena cava and multiple surgeries. * History of obstructive sleep apnea due to morbid obesity on chronic BiPAP. * COPD with chronic bronchitis. * Hypertension. * Atrial fibrillation on chronic Xarelto and flecainide. 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 * History of testicular cancer with orchiectomy status post chemotherapy with recurrence in 1989 and metastatic lesions to the vena cava with partial retroperitoneal resection and subsequent chemotherapy and vena cava occlusion requiring metal clamp and chronic anticoagulation. PLAN: The patient will be ruled out for bacteremia. Obtain blood cultures. For now, broad-spectrum coverage with Vancomycin for gram positive coverage, as well as ceftriaxone for gram-negative infection. CT of the neck. Cervical spine has no obvious abscess collection. The patient is allergic to contrast study iodine, therefore, will monitor clinically for now. Continue to monitor daily CBCs, CRP, and sed rate. The patient does not complain of any new neurological issues that would be concerning for an epidural abscess or diskitis for now, but will monitor clinically with every shift neuro checks. The patient will be continued on his home medications, Xarelto, rate control medication with diltiazem and flecainide, losartan for his blood pressure. Due to the history of obstructive sleep apnea and morbid obesity, the patient is at high risk of hypercapnic respiratory failure, therefore, will be kept on KUNAL protocol and resume his home BiPAP at his home settings. Hydromorphone for severe pain and Percocet 1-2 tablets pain management in the morning. If clinically worsens, will need to reassess. SOFY
[2020-08-02] MEDS: DOCUSATE SODIUM 100 MG CAP PO SCH (21:46)
[2020-08-02] MEDS: MONTELUKAST 10 MG TAB PO SCH (21:46)
[2020-08-02] MEDS: RIVAROXABAN 20 MG TAB (XARELTO) PO SCH (21:47)
[2020-08-03 00:50] VITALS: BP 106/49
[2020-08-03] MEDS: VANCOMYCIN HCL 1,000 MG, VIAL MATE ADAPTER 1 EACH in D5W 250 ML IV SCH ×2 (01:20→11:37)
[2020-08-03] MEDS: VANCOMYCIN HCL 500 MG in D5W MINI-BAG PLUS 100 ML IV SCH ×2 (03:03→12:50)
[2020-08-03] MEDS: HYDROmorphone (DILAUDID) 4 MG TAB PO PRN ×5 (03:11→21:56)
[2020-08-03] MEDS: SLF 3 ML SYR IV SCH ×3 (05:00→21:52)
[2020-08-03 06:00] VITALS: BP 128/76
[2020-08-03 06:38] LABS: BASO % 0.3 % (0.0-1.0); EOS # 0.2 10^3/uL (0.0-0.5); EOS % 1.8 % (0.0-3.0); HEMATOCRIT 35.3 % (42.0-52.0); LYMPH # 1.9 10^3/uL (1.5-5.0); LYMPH % 20.8 % (24.0-44.0); MEAN CORPUSCULAR HEMOGLOBIN 28.7 pg (27.0-33.0); MEAN CORPUSCULAR HGB CONC 31.2 g/dl (32.0-36.5); MEAN CORPUSCULAR VOLUME 92.2 fl (80.0-96.0); MONO # 1.1 10^3/uL (0.0-0.8); MONO % 12.3 % (0.0-5.0); NEUTROPHILS # 5.9 10^3/uL (1.5-8.5); NEUTROPHILS % 64.5 % (36.0-66.0); PLATELET COUNT, AUTOMATED 266 10^3/uL (150-450); RED BLOOD COUNT 3.83 10^6/uL (4.30-6.10); WHITE BLOOD COUNT 9.1 10^3/uL (4.0-10.0)
[2020-08-03 07:11] LABS: BLOOD UREA NITROGEN 21 MG/DL (7-18); CALCIUM LEVEL 8.6 MG/DL (8.8-10.2); CARBON DIOXIDE LEVEL 27 MEQ/L (21-32); CHLORIDE LEVEL 97 MEQ/L (98-107); GLOMERULAR FILTRATION RATE > 60.0 (>49); GLUCOSE, FASTING 114 MG/DL (70-100); POTASSIUM SERUM 3.7 MEQ/L (3.5-5.1); SODIUM LEVEL 132 MEQ/L (136-145)
[2020-08-03] MEDS ORDERED: ADVAIR HFA 115/21MCG INHALER INH SCH (09:00)
[2020-08-03] MEDS: ASCORBIC ACID 500 MG TAB PO SCH (09:15)
[2020-08-03] MEDS: FEXOFENADINE 60 MG TAB PO SCH (09:16)
[2020-08-03] MEDS: VERAPAMIL 120 MG SR TAB PO SCH ×2 (09:16→21:33)
[2020-08-03] MEDS: VITAMIN D 1,000 INTERNATIONAL UNITS TABLET PO SCH (09:16)
[2020-08-03] MEDS: FUROSEMIDE 40 MG TAB PO SCH ×2 (09:17→21:33)
[2020-08-03] MEDS: FLECAINIDE 50MG TABLET PO SCH ×2 (09:17→21:34)
[2020-08-03] MEDS: FERROUS SULFATE 325MG TAB PO SCH ×2 (09:18→21:32)
[2020-08-03] MEDS: CYCLOBENZAPRINE 10MG TABLET PO SCH ×3 (09:18→21:52)
[2020-08-03] MEDS: DIGOXIN 0.25 MG TAB PO SCH (09:19)
[2020-08-03] MEDS: LOSARTAN 50MG TABLET PO SCH (09:19)
[2020-08-03] MEDS: SPIRONOLACTONE 12.5MG PER 1/2 TABLET PO SCH (09:19)
[2020-08-03] MEDS: PANTOPRAZOLE 40MG TAB (PROTONIX) PO SCH (09:20)
[2020-08-03] MEDS: MIRALAX *UNIT DOSE* 17GM PACKET PO SCH (09:20)
[2020-08-03] MEDS: SERTRALINE 100 MG TAB PO SCH (09:21)
[2020-08-03] MEDS: HumaLOG INSULIN (NovoLOG) PER UNIT SC SCH ×4 (09:24→21:00)
--- NOTE | 2020-08-03 11:28 | IPN ---
DATE: 08/02/2020 Patient had a maximum temperature of 102.7 yesterday. Had been on vancomycin and ceftriaxone. No new complaints this morning. Pain is 5/10, most notable in bilateral shoulders. Able to flex his head without much difficulty this morning. Temperature is 99.2, maximum temperature 102.7, pulse 80, respiratory rate 18, blood pressure 146/78, 95% on bilevel positive airway pressure (BiPAP). GENERAL: Obese. No jugular venous distention (JVD) or thyromegaly. Thick neck. Moist mucous membranes. LUNGS: Clear to auscultation. No wheezing or rales. HEART: S1, S2, sinus rhythm. ABDOMEN: Obese, soft, nontender, nondistended. EXTREMITIES: Trace to 1+ pitting edema bilaterally. Patient has lipoma behind the neck. No cervical tenderness. Limited range of motion, bilateral shoulders. No erythema. Unable to abduct, adduct, internally or externally rotate due to severe pain. LABORATORY DATA: Sodium 136, potassium 3.3, chloride 101, bicarbonate 29, BUN 14, creatinine 1, glucose 162. CRP 14.8. White count 10, hemoglobin 11, hematocrit 36, platelet count 273. IMAGING STUDIES: Shoulder x-ray 08/02/2020: No acute fracture. Degenerative joint changes. CT spine: Straightening of cervical lordotic curve could be secondary to muscle spasm or repositioning. Multilevel spinal stenosis. Disc and integrity of cord could be better evaluated by MRI. 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 Collateral venous occlusions requiring vascular surgery, peripheral neuropathy due to multiple discectomies, left shoulder bone spur, asthma, bronchitis, appendectomy, back surgery, L3-S1. anal fissure surgery. left inferior turbinate surgery, presented to the emergency room with 2-day history of worsening back and neck pain. Found to have fever of 102 with no new neurological issues. Questionable discitis. IMPRESSION: 1. Bilateral shoulder pain and neck pain. 2. Fever, rule out discitis. 3. History of testicular cancer with recurrence and hypercoagulable state with vena caval occlusion, requiring metal plate and chronic anticoagulation. 4. Obesity. 5. Type 2 diabetes. 6. Hypertension. 7. Dyslipidemia. PLAN: Patient is continued on vancomycin and ceftriaxone. Blood cultures reviewed showed gram-positive cocci in one of two, done yesterday. Repeat blood cultures obtained this morning. Infectious disease specialist will be consulted in the morning. Obtain a 2D echo if positive for Staphylococcus aureus bacteremia. Patient has no neurological symptoms. He cannot obtain an MRI due to metal clip. Patient cannot undergo contrast dye due to allergic reaction to contrast dye. Defer to infectious disease if we require further imaging. Await culture results and continue with empiric antibiotics for gram-positive and negative infection. Continue with anticoagulation. MTDD
--- NOTE | 2020-08-03 13:24 | IPNPDOC ---
Date Seen The patient was seen on 08/03/20. Progress Note SUBJECTIVE: c/o muscles spasms around the cervical area and persistent soreness of the b/l shoulders. no c/o decreased conventions reservationist b/l hands. no recurrent fever or chills. worried about "being addicted to dilaudid," but worried about taking NSAIDs due to concurrent antiplatelet and anticoagulants. 3-5/10 pain with meds. ambulating well and working with physical therapy. OBJECTIVE: PHYSICAL EXAMINATION VITALS:PLS SEE BELOW GENERAL: obese no respiratory distress. anicteric The patient has benign e ssential tremors, has shaking tremors in the bilateral upper and lower extremities. NECK: No JVD or thyromegaly. No cervical lymphadenopathy. no stridor. thick neck HEENT: Dry mucous membranes. Anicteric, no jaundice. Pupils round and reactive. No JVD. LUNGS: Diminished, but clear to auscultation. No wheezing, rales, or rhonchi. HEART: S1, S2, sinus tachycardia. No murmurs, rubs, or gallops. ABDOMEN: Obese, soft, nontender, nondistended. EXTREMITIES: Trace lower extremity edema bilaterally. BACK: The patient has a lipoma in the back of the neck. spasms parasternal area in cervical region. No pain or irritation with flexion or extension of the neck. The patient hastenderness on palpation of the bilateral shoulders, no erythema, no obvious effusion that is noted. LABORATORY DATA: PLS SEE BELOW IMAGING STUDIES: PLS SEE BELOW This is a 70-year-old male with a history of chronic atrial fibrillation on flecainide and diltiazem, Xarelto 20 mg nightly at bedtime, follows with Dr. Vin king, prior history of testicular cancer with recurrence in the vena cava requiring multiple surgeries, as well as occlusion of the vena cava requiring metal clamp placement, multiple surgeries, laminectomies in the and of the lumbosacral spine, orchiectomy, hypertension, vena cava occlusion, multiple DVTs, COPD, KUNAL, bronchitis, obstructive sleep apnea on chronic CPAP, morbid obesity, type 2 diabetes with metabolic syndrome. The patient presents to the emergency room with fever today, but a three day historyof pain in the bilateral shoulders along with pain in the back of the neck. Cervical spine CT was negative. Chest CT was negative. UA was negative. The patient is admitted as an inpatient with the following issues: * Fever. * Chronic neck and back pain. * History of degenerative disk disease in the bilateral shoulders. * History of degenerative disk disease of the cervical and thoracic spines. * History of testicular cancer with recurrence. * Vena cava occlusion requiring metal clamp around the vena cava and multiple surgeries. * History of obstructive sleep apnea due to morbid obesity on chronic BiPAP. * COPD with chronic bronchitis. * Hypertension. * Atrial fibrillation on chronic Xarelto and flecainide. 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 * History of testicular cancer with orchiectomy status post chemotherapy with recurrence in 1989 and metastatic lesions to the vena cava with partial r etroperitoneal resection and subsequent chemotherapy and vena cava occlusion requiring metal clamp and chronic anticoagulation. PLAN: on empiric iv vanco and iv ceftriaxone, but no clinical tenderness in the cervical spine area. unable to obtain MRI C-spine due to metal plate. Allergic to contrast media, unable to get ct cspine with contrast. blood cx pending. 1/2 sets gram positive. ID consulted for recommendation. no focal area of infection so far with negative ct cspine, and possible contaminant on 1/2 sets of blood cx. no recent instrumentation in upper back. covid negative mrsa negative. de-escalate abx after ID sees the patient. prn pain meds. trial of flector patch and muscle relaxant. resumed on home meds. PT/OT consulted. VS, I&O, 24H, Fishbone Vital Signs/I&O Vital Signs Date Time Temp Pulse Resp B/P (MAP) Pulse Ox O2 Delivery O2 Flow Rate FiO2 08/03/20 13:01 18 Room Air 08/03/20 09:19 128/76 08/03/20 09:19 70 08/03/20 06:00 97.5 94 I&O- Last 24 Hours up to 6 AM 08/03/20 06:00 Intake Total 1190 ml Output Total 975 ml Balance 215 ml Laboratory Data 24H LABS Laboratory Tests 2 08/02/20 16:44: Vancomycin Level Trough 18.4 08/02/20 17:39: Bedside Glucose (Misc Panel) 132H 08/02/20 20:15: Bedside Glucose (Misc Panel) 175H 08/03/20 06:10: Immature Granulocyte % (Auto) 0.3, Neutrophils (%) (Auto) 64.5, Lymphocytes (%) (Auto) 20.8L, Monocytes (%) (Auto) 12.3H, Eosinophils (%) (Auto) 1.8, Basophils (%) (Auto) 0.3, Neutrophils # (Auto) 5.9, Lymphocytes # (Auto) 1.9, Monocytes # (Auto) 1.1H, Eosinophils # (Auto) 0.2, Basophils # (Auto) 0.0, Nucleated Red Blood Cells % (auto) 0.0, Anion Gap 8, Glomerular Filtration Rate > 60.0, Calcium Level 8.6L, Magnesium Level 2.0 08/03/20 11:40: Bedside Glucose (Misc Panel) 119H CBC/BMP Laboratory Tests 08/03/20 06:10 Microbiology Microbiology 08/02/20 Blood Culture - Preliminary, Resulted No growth after 24 hours . All specim... 08/02/20 Blood Culture - Preliminary, Resulted No growth after 24 hours . All specim... 08/01/20 Blood Culture - Preliminary, Resulted No growth after 24 hours . All specim... 08/01/20 Blood Culture - Preliminary, Resulted PABLITO DELCID MD Aug 03, 2020 13:17
[2020-08-03 14:00] VITALS: BP 104/58
[2020-08-03] MEDS ORDERED: POLYVINYL ALCOHOL OPHTH SOLN 15 ML(LIQUITEARS) OU PRN (19:15)
[2020-08-03] MEDS: ADVAIR HFA 230/21MCG INHALER INH SCH (19:52)
[2020-08-03 20:00] VITALS: BP 118/62
[2020-08-03] MEDS: DOCUSATE SODIUM 100 MG CAP PO SCH (21:32)
[2020-08-03] MEDS: MONTELUKAST 10 MG TAB PO SCH (21:33)
[2020-08-03] MEDS: RIVAROXABAN 20 MG TAB (XARELTO) PO SCH (21:34)
[2020-08-03] MEDS: DICLOFENAC EPOLAMINE 1.3 % PATCH TOP SCH (21:35)
[2020-08-03] MEDS: FLUTICASONE PROP 0.05% NASAL SPRAY 16 GM (FLONASE) NARES SCH (21:36)
[2020-08-04] MEDS ORDERED: VANCOMYCIN HCL 1,000 MG, VIAL MATE ADAPTER 1 EACH in D5W 250 ML IV SCH ×2 (03:00→04:00)
[2020-08-04] MEDS ORDERED: VANCOMYCIN HCL 2,000 MG in D5W 500 ML IV SCH (03:00)
[2020-08-04] MEDS: HYDROmorphone (DILAUDID) 4 MG TAB PO PRN ×4 (05:14→23:56)
[2020-08-04] MEDS: SLF 3 ML SYR IV SCH ×3 (05:15→20:10)
[2020-08-04 06:00] VITALS: BP 119/62
[2020-08-04] MEDS ORDERED: diphenhydrAMINE 50MG CAP PO ONE (06:00)
[2020-08-04] MEDS ORDERED: predniSONE 20 MG TAB PO ONE (06:00)
[2020-08-04 06:54] LABS: BASO % 0.3 % (0.0-1.0); EOS # 0.2 10^3/uL (0.0-0.5); EOS % 2.1 % (0.0-3.0); HEMOGLOBIN 10.3 g/dl (13.5-17.5); LYMPH # 1.2 10^3/uL (1.5-5.0); LYMPH % 16.1 % (24.0-44.0); MEAN CORPUSCULAR HGB CONC 32.2 g/dl (32.0-36.5); MEAN CORPUSCULAR VOLUME 90.1 fl (80.0-96.0); MONO # 0.8 10^3/uL (0.0-0.8); MONO % 10.6 % (0.0-5.0); NEUTROPHILS # 5.1 10^3/uL (1.5-8.5); NEUTROPHILS % 70.6 % (36.0-66.0); PLATELET COUNT, AUTOMATED 270 10^3/uL (150-450); RED BLOOD COUNT 3.55 10^6/uL (4.30-6.10); WHITE BLOOD COUNT 7.2 10^3/uL (4.0-10.0)
[2020-08-04] MEDS: ACETAMINOPHEN TAB 650MG DOSE (2X325MG) PO PRN (06:55)
[2020-08-04 07:14] LABS: CALCIUM LEVEL 8.5 MG/DL (8.8-10.2); CREATININE FOR GFR 1.34 MG/DL (0.70-1.30); GLOMERULAR FILTRATION RATE 56.3 (>49); MAGNESIUM LEVEL 2.1 MG/DL (1.8-2.4); POTASSIUM SERUM 3.8 MEQ/L (3.5-5.1)
[2020-08-04] MEDS: HumaLOG INSULIN (NovoLOG) PER UNIT SC SCH ×4 (07:30→20:07)
[2020-08-04] MEDS: ADVAIR HFA 230/21MCG INHALER INH SCH ×2 (07:31→21:33)
[2020-08-04] MEDS ORDERED: TRIAMCINOLONE ACET 0.1% OINTMENT 15 GM TOP PRN (08:45)
[2020-08-04 08:59] LABS: ERYTHROCYTE SEDIMENTATION RATE 91 mm/hr (0-20)
[2020-08-04] MEDS: SPIRONOLACTONE 12.5MG PER 1/2 TABLET PO SCH (09:00)
[2020-08-04 09:11] LABS: C REACTIVE PROTEIN QUANTITATIV 17.5 MG/DL (0.00-0.30)
[2020-08-04] MEDS: PANTOPRAZOLE 40MG TAB (PROTONIX) PO SCH (09:59)
[2020-08-04] MEDS: CYCLOBENZAPRINE 10MG TABLET PO SCH ×3 (09:59→20:09)
[2020-08-04] MEDS: FUROSEMIDE 40 MG TAB PO SCH ×2 (09:59→20:09)
[2020-08-04] MEDS: ASCORBIC ACID 500 MG TAB PO SCH (09:59)
[2020-08-04] MEDS: FEXOFENADINE 60 MG TAB PO SCH (09:59)
[2020-08-04] MEDS: LOSARTAN 50MG TABLET PO SCH (10:00)
[2020-08-04] MEDS: SERTRALINE 100 MG TAB PO SCH (10:00)
[2020-08-04] MEDS: DIGOXIN 0.25 MG TAB PO SCH (10:02)
[2020-08-04] MEDS: FLECAINIDE 50MG TABLET PO SCH ×2 (10:03→20:08)
[2020-08-04] MEDS: FERROUS SULFATE 325MG TAB PO SCH ×2 (10:03→20:09)
[2020-08-04] MEDS: MIRALAX *UNIT DOSE* 17GM PACKET PO SCH (10:03)
[2020-08-04] MEDS: FLUTICASONE PROP 0.05% NASAL SPRAY 16 GM (FLONASE) NARES SCH ×2 (10:05→20:07)
[2020-08-04] MEDS: DICLOFENAC EPOLAMINE 1.3 % PATCH TOP SCH ×2 (10:05→20:07)
[2020-08-04] MEDS: VERAPAMIL 120 MG SR TAB PO SCH ×2 (10:12→20:08)
[2020-08-04] MEDS: VITAMIN D 1,000 INTERNATIONAL UNITS TABLET PO SCH (10:12)
[2020-08-04] MEDS: predniSONE 20 MG TAB PO SCH ×2 (12:13→17:53)
[2020-08-04] MEDS ORDERED: MIRALAX *UNIT DOSE* 17GM PACKET PO ONE (13:00)
[2020-08-04 14:00] VITALS: BP 117/58
[2020-08-04] MEDS ORDERED: ISOVUE-370 76% 100ML VIAL As Ordered ONE (18:03)
--- NOTE | 2020-08-04 19:49 | REPVR ---
PROCEDURE INFORMATION: Exam: CT Neck With Contrast Exam date and time: 08/04/2020 7:06 PM Age: 70 years old Clinical indication: Neck pain and other: R/O disciitis osteo abscess; Additional info: With contrast. R/O disciitis osteo abscess fever/neck pain TECHNIQUE: Imaging protocol: Computed tomography images of the neck with intravenous contrast. Radiation optimization: All CT scans at this facility use at least one of these dose optimization techniques: automated exposure control; mA and/or kV adjustment per patient size (includes targeted exams where dose is matched to clinical indication); or iterative reconstruction. Contrast material: ISOVUE 370; Contrast volume: 100 ml; Contrast route: INTRAVENOUS (IV); COMPARISON: CT Spine,cervical w/o contrast 08/01/2020 1:58 PM FINDINGS: Sinuses: No fluid collections. Nasopharynx: Unremarkable. Oropharynx: Unremarkable. No significant tonsillar enlargement. Hypopharynx: Unremarkable. Larynx: Unremarkable. Normal epiglottis. Retropharyngeal space: Unremarkable. Submandibular/Parotid glands: Normal. Glands are normal in size. Thyroid: 1.4 cm low-density lesion in the right lobe of the thyroid. Lymph nodes: Unremarkable. No lymphadenopathy. Trachea: Visualized trachea is unremarkable. Lungs: Unremarkable as visualized. Bones/joints: There is narrowing of the left glenohumeral joint with subchondral sclerosis and marginal osteophytes. Straightening of normal cervical lordosis. Degenerative changes in the mid and lower cervical spine with disc space narrowing and marginal osteophyte formation. C3-C4: Right posterolateral disc bulge with narrowing right lateral recess and impression upon the ventral margin of the thecal sac and the spinal cord. Mild central stenosis. C5-C6: Large posterior disc osteophyte ridge with uncovertebral hypertrophy particularly on the left. Moderate left foraminal stenosis. Moderate central stenosis. C6-C7: Large posterior disc osteophyte ridge. Uncovertebral hypertrophy. Moderate central stenosis. Moderate to severe bilateral foraminal stenosis. Soft tissues: Osteochondroma or myositis ossificans noted projecting from the anterior aspect of the body of the left scapula. IMPRESSION: 1. No abscess. Discitis should be excluded with MRI if clinically relevant 2. Multilevel degenerative disc disease with central and foraminal stenosis at C5-C6 and C6-C7 3. 1.4 cm low-density lesion right lobe of the thyroid.No follow-up is recommended. COMMENTS: Consistent with the [employer]'s Incidental Findings Committee white paper (J Am Xander Radiol 2015): In patients aged 35 years and older with an incidental thyroid nodule equal to or greater than 1.[address], MRI or extrathyroidal US, further evaluation with dedicated thyroid US is recommended for patients with normal life expectancy and without comorbidities. For smaller nodules without suspicious features, no further evaluation or follow up is recommended. Electronically signed by: Shabnam Rizo On 08/04/2020 19:48:44 PM
[2020-08-04 19:51] VITALS: BP 124/62
[2020-08-04] MEDS: VANCOMYCIN HCL 1,000 MG, VIAL MATE ADAPTER 1 EACH in D5W 250 ML IV SCH (20:07)
[2020-08-04] MEDS: RIVAROXABAN 20 MG TAB (XARELTO) PO SCH (20:09)
[2020-08-04] MEDS: MONTELUKAST 10 MG TAB PO SCH (20:09)
[2020-08-04] MEDS: DOCUSATE SODIUM 100 MG CAP PO SCH (20:09)
--- NOTE | 2020-08-04 20:28 | REPVR ---
PROCEDURE INFORMATION: Exam: CT Thoracic Spine With Contrast Exam date and time: 08/04/2020 7:06 PM Age: 70 years old Clinical indication: Pain in thoracic spine; Other: R/O disciitis osteo abscess; Additional info: With contrast. R/O disciitis osteo abscess fever/back pain TECHNIQUE: Imaging protocol: Computed tomography images of the thoracic spine with intravenous contrast. Radiation optimization: All CT scans at this facility use at least one of these dose optimization techniques: automated exposure control; mA and/or kV adjustment per patient size (includes targeted exams where dose is matched to clinical indication); or iterative reconstruction. Contrast material: ISOVUE 370; Contrast volume: 100 ml; Contrast route: INTRAVENOUS (IV); COMPARISON: No relevant prior studies available. FINDINGS: Vertebrae: The thoracic vertebral bodies are normal in height, without abnormal subluxation. There is no significant thoracic endplate irregularity to suggest osteomyelitis, although discitis/osteomyelitis cannot be excluded on CT. Mild anterolisthesis of C7 on T1. Discs/Spinal canal/Neural foramina: Degenerative changes are identified at multiple thoracic levels, with disc bulge/osteophyte complexes. A decrease in disc height is identified from T2-3 through T11-12. A mild vacuum disc phenomena is identified from T7-8 through T10-11. Artifact obscures the upper thoracic spinal canal. Mild narrowing of the thecal sac is identified at T5-6, T6-7, T7-8, and T8-9. Varying degrees of neural foraminal narrowing identified at multiple thoracic levels. Soft tissues: Streaking artifact from a surgical clip is identified within the upper abdomen. No significant paraspinal swelling. Thyroid: Mild asymmetric prominence of the right thyroid lobe. IMPRESSION: 1. There is no significant thoracic endplate irregularity to suggest osteomyelitis, although discitis/osteomyelitis cannot be excluded on CT. If further evaluation is clinically indicated, correlation with MRI recommended. 2. Mild anterolisthesis of C7 on T1. 3. Degenerative changes are identified at multiple thoracic levels. 4. Mild narrowing of the thecal sac is identified at T5-6, T6-7, T7-8, and T8-9. 5. Additional findings described above. Electronically signed by: Lance Elmore On 08/04/2020 20:28:11 PM
[2020-08-04] MEDS ORDERED: SIMVASTATIN 10 MG TAB PO SCH (21:00)
[2020-08-05] MEDS: SLF 3 ML SYR IV SCH ×3 (04:22→20:17)
[2020-08-05] MEDS: VANCOMYCIN HCL 1,000 MG, VIAL MATE ADAPTER 1 EACH in D5W 250 ML IV SCH (04:22)
[2020-08-05] MEDS: HYDROmorphone (DILAUDID) 4 MG TAB PO PRN ×2 (05:06→16:13)
[2020-08-05 05:37] LABS: BASO % 0.1 % (0.0-1.0); HEMOGLOBIN 10.7 g/dl (13.5-17.5); LYMPH # 0.6 10^3/uL (1.5-5.0); LYMPH % 5.1 % (24.0-44.0); MEAN CORPUSCULAR HEMOGLOBIN 28.9 pg (27.0-33.0); MEAN CORPUSCULAR HGB CONC 32.4 g/dl (32.0-36.5); MEAN CORPUSCULAR VOLUME 89.2 fl (80.0-96.0); MONO # 0.6 10^3/uL (0.0-0.8); MONO % 5.4 % (0.0-5.0); NEUTROPHILS # 9.7 10^3/uL (1.5-8.5); NEUTROPHILS % 88.9 % (36.0-66.0); PLATELET COUNT, AUTOMATED 296 10^3/uL (150-450)
[2020-08-05 06:06] VITALS: BP 167/85
[2020-08-05 06:07] LABS: CALCIUM LEVEL 6.4 MG/DL (8.8-10.2); CREATININE FOR GFR 1.61 MG/DL (0.70-1.30); GLOMERULAR FILTRATION RATE 45.5 (>49); MAGNESIUM LEVEL 2.5 MG/DL (1.8-2.4); POTASSIUM SERUM 4.3 MEQ/L (3.5-5.1)
[2020-08-05] MEDS: ADVAIR HFA 230/21MCG INHALER INH SCH ×2 (07:28→19:57)
[2020-08-05] MEDS: HumaLOG INSULIN (NovoLOG) PER UNIT SC SCH ×4 (07:43→20:28)
[2020-08-05] MEDS: FLECAINIDE 50MG TABLET PO SCH ×2 (09:07→20:15)
[2020-08-05] MEDS: FEXOFENADINE 60 MG TAB PO SCH (09:08)
[2020-08-05] MEDS: PANTOPRAZOLE 40MG TAB (PROTONIX) PO SCH (09:11)
[2020-08-05] MEDS: VERAPAMIL 120 MG SR TAB PO SCH ×2 (09:11→20:14)
[2020-08-05] MEDS: FERROUS SULFATE 325MG TAB PO SCH ×2 (09:11→20:14)
[2020-08-05] MEDS: CYCLOBENZAPRINE 10MG TABLET PO SCH ×3 (09:11→20:15)
[2020-08-05] MEDS: SERTRALINE 100 MG TAB PO SCH (09:12)
[2020-08-05] MEDS: VITAMIN D 1,000 INTERNATIONAL UNITS TABLET PO SCH (09:12)
[2020-08-05] MEDS: DIGOXIN 0.25 MG TAB PO SCH (09:12)
[2020-08-05] MEDS: ASCORBIC ACID 500 MG TAB PO SCH (09:18)
[2020-08-05] MEDS: METOPROLOL TART 25 MG TABLET PO SCH ×3 (09:18→17:53)
[2020-08-05] MEDS: FLUTICASONE PROP 0.05% NASAL SPRAY 16 GM (FLONASE) NARES SCH ×2 (09:19→20:15)
[2020-08-05] MEDS: MIRALAX *UNIT DOSE* 17GM PACKET PO SCH (09:19)
[2020-08-05] MEDS ORDERED: cefTRIAXone SOD 2 GM VIAL (J0696 PER 250MG) IM SCH (09:30)
[2020-08-05] MEDS ORDERED: cefTRIAXone SOD 2 GM in D5W MINI-BAG PLUS 50 ML IV SCH (10:00)
[2020-08-05] MEDS: ISOSORBIDE DIN (ISORDIL) 10 MG TAB PO SCH ×2 (10:43→17:53)
[2020-08-05] MEDS ORDERED: NS 250 ML IV PRN (14:15)
[2020-08-05 16:00] VITALS: BP 110/60
[2020-08-05 20:00] VITALS: BP 110/55
[2020-08-05] MEDS ORDERED: VANCOMYCIN HCL 1,000 MG, VIAL MATE ADAPTER 1 EACH in D5W 250 ML IV SCH (20:00)
[2020-08-05] MEDS: MONTELUKAST 10 MG TAB PO SCH (20:15)
[2020-08-05] MEDS: DOCUSATE SODIUM 100 MG CAP PO SCH (20:15)
[2020-08-05] MEDS: RIVAROXABAN 20 MG TAB (XARELTO) PO SCH (20:15)
[2020-08-05 20:47] LABS: CALCIUM LEVEL 9.6 MG/DL (8.8-10.2); CREATININE FOR GFR 1.84 MG/DL (0.70-1.30); POTASSIUM SERUM 4.6 MEQ/L (3.5-5.1)
[2020-08-05] MEDS ORDERED: IPRATROPIUM 0.5MG/ALBUTEROL 2.5MG INH SOL UD 3ML (DUONEB) NEB ONE (22:45)
--- NOTE | 2020-08-05 22:55 | CR ---
INFECTIOUS DISEASE CONSULTATION DATE OF CONSULTATION: 08/03/2020 REASON FOR CONSULTATION: I was asked to consult by hospitalist for evaluation of positive blood cultures in a patient with fever and severe neck pain. HISTORY OF PRESENT ILLNESS: Mr. Aguillon is a pleasant 70-year-old gentleman with a history of severe degenerative disc disease in the lumbar area; status post back surgery and chronic degenerative disease of the cervical spine, for which he had been undergoing physical therapy. The patient, a couple days prior to admission, had developed severe neck pain radiating to his shoulders, mostly in the shoulder blade. The patient then developed a fever up to 102 with chills. He took Tizanidine without any relief. The patient usually takes Hydrocodone maybe once a week and Soma one at bedtime at baseline, but this was intense pain that had moved around from the cervical spine, thoracic spine to both shoulders. He came to the Emergency Room, where he was noted to have a fever up to 102. He was concerned about burning in his neck area, especially when he turned right and left. 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 History of partial retroperitoneal resection, chemo and benign essential hypertension, morbid obesity with BMI of 45, neuropathy due to degenerative disc disease with numbness of both feet, history of asthma, diabetes on Bydureon. Multiple deep vein thrombosis and atrial fibrillation on chronic anticoagulation. PAST SURGICAL HISTORY: L5-S1 surgery done by Dr. York, L3 and L4 surgery done by Dr. Omalley. The patient has chronic back pain, left inferior turbinate surgery, anal fissure surgery, metal clamp around the vena cava; MRI contraindicated. ALLERGIES: Iodine gives him a rash and pruritis, but he does not have trouble with shortness of breath, tape. MEDICATIONS: 1. Albuterol two puffs every 4 hours p.r.n. 2. Ascorbic acid 500 mg daily 3. Vitamin D 2,000 units daily. 4. Digoxin 250 mcg daily. 5. Colace 200 mg at bedtime. 6. Nexium 40 mg daily. 7. Ferrous Sulfate 325 mg b.i.d. 8. Barbra 180 mg daily. 9. Lasix 40 mg in the evening and 80 mg in the morning. 10. Hydrocodone one tab every 6 hours p.r.n. as needed. Patient usually uses one tab a week at baseline. 11. Losartan 50 mg daily. 12. Lovastatin 10 mg twice a week. 13. Meclizine 25 mg t.i.d. 14. Metformin 500 mg daily. 15. Montelukast 10 mg at bedtime. 16. MiraLax 17 grams daily. 17. Xarelto 20 mg at bedtime. 18. Advair 500 one puff inhaled b.i.d. 19. Senokot as needed. 20. Zoloft 100 mg daily. 21. Spironolactone 12.5 mg daily. 22. Tizanidine 4 mg t.i.d. 23. Verapamil 240 mg b.i.d. 24. Flecainide 100 mg b.i.d. 25. Vitamin E 400 mg daily. 26. Pyridoxine 100 mg b.i.d. 27. Exenatide 2 mg subcutaneously every 7 days. 28. Vancomycin 1.5 grams I.V. every 8 hours. 29. Rocephin 2 grams I.V. every 24 hours. SOCIAL HISTORY: He lives with his at home. No pets. 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 He quit smoking over 30 years ago. REVIEW OF SYSTEMS: He denies any nausea, vomiting or diarrhea. No abdominal pain. He tends to have chronic constipation. He has severe neck pain and low back pain with burning of both shoulder blades. He has difficulty with range of motion of his left shoulder, but that is chronic. He is supposed to have shoulder replacement. PHYSICAL EXAMINATION: VITALS: T-max 101.1. Temp 99.7, pulse 84, respirations 18, blood pressure 104/68, O2 sat 97% on room air. GENERAL: A healthy looking gentleman with tremors in both upper extremity and lower extremity. HEART: Normal S1, S2. No murmurs appreciated. No rubs or gallops. LUNGS: Clear. No wheezes, rales, or rhonchi. ABDOMEN: Morbidly obese, soft, nontender with venous collaterals on his left abdominal area. Large midline scars from inferior vena cava surgery. EXTREMITIES: +1 pitting edema and chronic venous stasis changes bilaterally with hyperpigmented discoloration of the skin. Feet with no open lesions. He has erythema of both plantar aspects of the feet with mild peeling. Dry calluses. NEUROLOGIC: Patient is able to ambulate to the bathroom and back without any problems. Lower extremity strength is normal. Upper extremity; patient is able to move both shoulders to 90 degrees; left is more limited than the right side due to chronic arthritic issues that is not new. NECK: Cervical tenderness minimal. There is no point tenderness except at the right shoulder blade where you could feel a muscle spasm. LABORATORY DATA: White count 10.8 on admission. ESR 73 today. White count 9.1, hemoglobin 11, hematocrit 35.3, platelets 266,000, 64% neutrophils, 20% lymphocytes, 12% monocytes. Sodium 132, potassium 3.7, chloride 97, bicarb 27, BUN 21, creatinine 1.2, glucose 114, calcium 8.6, magnesium 2. Vancomycin trough 18.4. Urinalysis had right white cells, 1 red cell. Serology: COVID-19 screen is negative. MRSA PCR negative. Blood culture one out of two from 08/01/2020 was positive for gram positive cocci in clusters. On 08/02/2020, two sets are negative. IMAGING STUDIES: CT cervical spine and chest were done without contrast due to allergies, which showed chronic arthritic changes, no evidence of acute cardiopulmonary disease and coronary artery calcifications fatty liver, but no acute findings to suggest infection. IMPRESSION: This is a 70-year-old gentleman with a history of cervical disc disease, chronic arthritis of the left shoulder that needs replacement, and chronic lumbar low back pain with two disc surgeries, who presented with acute onset of cervical upper thoracic back pain radiating to both shoulders, associated with fever, elevated ESR and CRP. The patient has positive blood culture with gram positive cocci, which could be Staph Aureus or possibly a contaminant. At this point, there is concern of acute discitis/epidural abscess and therefore that needs to be ruled out. Patient has a contraindication to MRI as he has metallic clips in his vena cava. PLAN: Obtain CT cervical and thoracic spine with contrast tomorrow after patient is pre-medicated with prednisone. The patient is agreeable on getting contrast, he only has hives no angioedema Case has been discussed with Dr. Hernandez, who has agreed with the plan. Discontinue I.V. Rocephin. Would continue only I.V. Vancomycin until further identification of pathogen. Thank you for the consultation. SOFY
--- NOTE | 2020-08-06 00:07 | REPVR ---
PROCEDURE INFORMATION: Exam: XR Chest, 1 View Exam date and time: 08/05/2020 11:36 PM Age: 70 years old Clinical indication: Other: Cough/wheezing; Additional info: Cough, wheezing TECHNIQUE: Imaging protocol: XR of the chest Views: 1 view. COMPARISON: CT Chest without contrast 2020-08-01 13:58 FINDINGS: Lungs: Unremarkable. No consolidation. Pleural space: Unremarkable. No pleural effusion. No pneumothorax. Heart/Mediastinum: Unremarkable. No cardiomegaly. Bones/joints: Unremarkable. IMPRESSION: No acute findings. Electronically signed by: Gunner Bosch On 08/06/2020 00:07:31 AM
[2020-08-06] MEDS: HYDROmorphone (DILAUDID) 4 MG TAB PO PRN ×2 (01:47→18:17)
[2020-08-06] MEDS: ISOSORBIDE DIN (ISORDIL) 10 MG TAB PO SCH ×3 (01:49→18:00)
[2020-08-06] MEDS: METOPROLOL TART 25 MG TABLET PO SCH ×4 (06:00→18:00)
[2020-08-06 06:23] VITALS: BP 129/70
[2020-08-06] MEDS: SLF 3 ML SYR IV SCH ×3 (06:26→20:16)
[2020-08-06 07:01] LABS: BASO % 0.2 % (0.0-1.0); EOS % 0.2 % (0.0-3.0); HEMATOCRIT 32.8 % (42.0-52.0); HEMOGLOBIN 10.5 g/dl (13.5-17.5); LYMPH # 1.4 10^3/uL (1.5-5.0); LYMPH % 10.5 % (24.0-44.0); MEAN CORPUSCULAR HEMOGLOBIN 28.5 pg (27.0-33.0); MEAN CORPUSCULAR VOLUME 88.9 fl (80.0-96.0); NEUTROPHILS # 10.4 10^3/uL (1.5-8.5); NEUTROPHILS % 80.7 % (36.0-66.0); PLATELET COUNT, AUTOMATED 322 10^3/uL (150-450); RED BLOOD COUNT 3.69 10^6/uL (4.30-6.10); WHITE BLOOD COUNT 12.9 10^3/uL (4.0-10.0)
[2020-08-06 07:19] LABS: CALCIUM LEVEL 8.8 MG/DL (8.8-10.2); CREATININE FOR GFR 1.66 MG/DL (0.70-1.30); GLOMERULAR FILTRATION RATE 43.9 (>49); MAGNESIUM LEVEL 2.5 MG/DL (1.8-2.4); POTASSIUM SERUM 4.1 MEQ/L (3.5-5.1); VANCOMYCIN LEVEL TROUGH 20.5 UG/ML (10.0-20.0)
[2020-08-06] MEDS: ADVAIR HFA 230/21MCG INHALER INH SCH ×2 (08:00→20:24)
[2020-08-06] MEDS: MIRALAX *UNIT DOSE* 17GM PACKET PO SCH (08:05)
[2020-08-06] MEDS: HumaLOG INSULIN (NovoLOG) PER UNIT SC SCH ×4 (08:05→20:15)
[2020-08-06] MEDS: DIGOXIN 0.25 MG TAB PO SCH (08:06)
[2020-08-06] MEDS: CYCLOBENZAPRINE 10MG TABLET PO SCH ×3 (08:06→20:15)
[2020-08-06] MEDS: SERTRALINE 100 MG TAB PO SCH (08:06)
[2020-08-06] MEDS: FLECAINIDE 50MG TABLET PO SCH ×2 (08:06→20:14)
[2020-08-06] MEDS: VERAPAMIL 120 MG SR TAB PO SCH ×2 (08:07→20:14)
[2020-08-06] MEDS: FLUTICASONE PROP 0.05% NASAL SPRAY 16 GM (FLONASE) NARES SCH ×2 (08:08→20:15)
[2020-08-06] MEDS: PANTOPRAZOLE 40MG TAB (PROTONIX) PO SCH (08:08)
[2020-08-06] MEDS: ASCORBIC ACID 500 MG TAB PO SCH (08:08)
[2020-08-06] MEDS: VITAMIN D 1,000 INTERNATIONAL UNITS TABLET PO SCH (08:08)
[2020-08-06] MEDS: FEXOFENADINE 60 MG TAB PO SCH (08:08)
[2020-08-06] MEDS: FERROUS SULFATE 325MG TAB PO SCH ×2 (08:08→20:15)
[2020-08-06] MEDS ORDERED: VANCOMYCIN HCL 1,000 MG, VIAL MATE ADAPTER 1 EACH in D5W 250 ML IV SCH (09:00)
--- NOTE | 2020-08-06 11:46 | IPN ---
DATE: 08/04/2020 SUBJECTIVE: The patient reports that the spasms along his paraspinal area in the cervical neck is much improved with the Flector Patch. He is able to sleep a little bit better as well. He did have a low-grade temperature of 100.1, still on Vancomycin. PHYSICAL EXAMINATION: VITAL SIGNS: T-max 100.1 temperature, pulse 81, respiratory rate 18, blood pressure 119/62, 94% on room air. GENERAL: Awake, alert and oriented x3, answering questions appropriately. HEENT: No scleral icterus or jaundice. Patient has benign essential tremors. Dry mucous membranes. Pupils round and reactive. NECK: No JVD, thyromegaly or cervical lymphadenopathy. No stridor. Chronic thick neck. LUNGS: Clear to auscultation. No adventitious breath sounds. Air entry is equal bilaterally. No wheezing, rales or rhonchi. HEART: S1 and S2. No murmurs, rubs or gallops. ABDOMEN: Obese, soft, nontender and nondistended. Positive bowel sounds. EXTREMITIES: Trace edema. BACK: Patient has a lipoma on the back of the neck. Spasms are improved in the cervical area. No difficulty with flexion or extension of the neck. Negative Kernigs and Babinski sign. Slightly tender with some spasm along the paraspinal area and the cervical region. No vertebral tenderness in the cervical or thoracic area. LABORATORY DATA: White count 7, hemoglobin 10, hematocrit 32, platelet count of 270,000. Sodium 131, potassium 3.8, chloride 97, bicarbonate 27, BUN 26, creatinine 1.34, glucose 157. Microbiology: Staph hominis one of two sets of blood cultures. Imaging study reviewed. ASSESSMENT AND PLAN: This is a 70-year-old male with a history or chronic atrial fibrillation on Flecainide and Diltiazem, Xarelto, sees Dr. 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 IMPRESSION: 1. Fever, rule out cervical or thoracic discitis. 2. Allergic to CONTRAST requiring pre-medication. 3. Chronic neck, back and shoulder pain. 4. Degenerative disc disease of cervicothoracic spine. 5. Testicular cancer with previous recurrence and vena cava occlusion status post orchiectomy and multiple surgeries. 6. KUNAL due to morbid obesity, on chronic BiPAP. 7. COPD with chronic bronchitis. 8. Atrial fibrillation on chronic Xarelto and flecainide. 9. Acute kidney injury, currently on diuretics and CR inhibitor, will continue to monitor. 10. 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 11. History of multiple DVTs on chronic Xarelto. 12. 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 13. 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 PLAN: Patient had been on empiric Ceftriaxone and IV Vancomycin. ID consulted and recommended continuation of IV Vancomycin. Patient has been pre-medication for contrast study to obtain a CT cervical and thoracic spine with contrast to rule out discitis. Patient has no neurological complaints. No worsening neuropathy of his fingers. Patient denies any decrease in doffer and changes in his ADLs. He has chronic benign essential tremors. He is continued on all his medications but will need to monitor his diuretics and CR inhibitor in light of acute kidney injury and hyponatremia. C-reactive protein is increased from admission of 14.8 to 17.5 for now. He has a contaminated blood culture with Staph hominis but will continue with empiric treatment with Vancomycin for now that is renally dosed. His spasms are improved with Flector Patch. May need to discontinue the Flector Patch in light of the acute kidney injury and diuretics. MTDD
--- NOTE | 2020-08-06 11:49 | IPN ---
DATE: 08/05/2020 Patient says that his pain is significantly improved, currently at 3/10. Patient's creatinine is increased to 1.6 with Flector patch, which has been held, along with his eplerenone and Lasix this morning. No fever. Had occasional chills last night, but maximum temperature was 100.1. Currently temperature 98.1, pulse 92, sinus, respiratory rate 18, blood pressure 167/85, 97% on room air. GENERAL: Patient is awake, alert, oriented times three, answering questions appropriately. Benign essential tremors noted in the left upper and lower extremities. Neck: No jugular venous distention (JVD) or thyromegaly. No cervical lymphadenopathy. Thick neck. Dry mucous membranes. LUNGS: Diminished. Clear to auscultation. No wheezing, rales, or rhonchi. HEART: S1, S2, sinus rhythm. No murmurs, rubs, or gallops. ABDOMEN: Soft, nontender, nondistended. Positive bowel sounds times four quadrants. No hepatosplenomegaly. No abdominal bruit. EXTREMITIES: Trace lower extremity edema. BACK: Patient has a lipoma on the back of the neck. No pain or irritation on flexion or extension of the neck. Tenderness along the paraspinal cervical area. LABORATORY DATA: White count 11, hemoglobin 10, hematocrit 33, platelet count 296. Sodium 130, potassium 4.3, chloride 100, bicarbonate 30, BUN 38, creatinine 1.6, glucose 229, C-reactive protein 7.5. Blood cultures: Staphylococcus hominis. CT neck and thoracic spine: Cannot rule out discitis or osteomyelitis on CT. MRI recommended. ASSESSMENT AND PLAN: This is a 70-year-old male with history of chronic atrial fibrillation, on flecainide, diltiazem, Xarelto. Follows with Dr. Short. History of testicular cancer with recurrence, vena caval occlusion, multiple surgeries, metal clamp, laminectomies, lumbar spine, orchiectomy, vena caval occlusion, multiple deep venous thromboses (DVTs), chronic obstructive pulmonary disease (COPD), obstructive sleep apnea (KUNAL), bronchitis, obstructive sleep apnea, morbid obesity, type 2 diabetes, presented with neck and back pain and fever of 102. IMPRESSION: 1. Fever, rule out discitis. CT neck and thoracic area, could rule out discitis or osteomyelitis. Recommendation for MRI. Currently on vancomycin with increasing white count and C-reactive protein. Ceftriaxone has been added. Infectious disease (ID) had been consulted. Await recommendations on Friday. 2. Chronic neck and back pain. Discontinue Flector patch due to acute kidney injury. 3. Acute kidney injury. Discontinue Flector patch. Hold patient's diuretics until creatinine is back to normal. Continue with Percocet as needed. 4. History of testicular cancer with recurrence, status post orchiectomy. Complicated by vena caval occlusion with metal clamp and on chronic anticoagulation. Continue present management with anticoagulation. 5. History of KUNAL due to morbid obesity, on chronic bilevel positive airway pressure (BiPAP), continued. 6. Atrial fibrillation, on chronic Xarelto and flecainide. Currently rate controlled. 7. History of multiple DVTs, vena caval occlusion, on chronic Xarelto. MTDD
[2020-08-06 14:00] VITALS: BP 135/74
--- NOTE | 2020-08-06 14:25 | IPN ---
DATE: 08/04/2020 ATTENDING PHYSICIAN: Keila Greenwood MD SUBJECTIVE: Patient was seen and examined this morning. He was originally admitted for possible discitis. This morning, the patient states that his back pain is actually located more around his neck and shoulder region and otherwise diffuse back pain mostly around his paraspinal muscles. He states that his pain is well controlled today. He had been febrile on admission with a maximum temperature (T-max) of 102.7, otherwise has been afebrile since admission. He had blood cultures drawn with one being positive for Staphylococcus hominis species, otherwise the other three sets have all been negative. The patient was started empirically on vancomycin for suspected discitis and bacteremia. 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 OBJECTIVE: Vital signs: Temperature 100.1, pulse 81, respiratory rate 18, blood pressure 119/62, pulse oximetry 94% on room air. General: Patient is awake, alert, oriented. He does not appear in any acute distress. He is sitting up comfortably in bed. He is conversive. HEENT: Atraumatic, normocephalic. Eyes nonicteric. Trachea is midline. There is no point tenderness along the cervical region. Patient has full range of motion of his neck. Cardiovascular: Normal S1, S2. Regular rate and rhythm. No clicks, rubs, or murmurs. Pulmonary: Clear vesicular breath sounds bilaterally. Good respiratory effort. No wheezes, rhonchi, or rales. Abdominal: Morbidly obese, soft, nondistended, nontender. Normoactive bowel sounds throughout. Musculoskeletal: Patient has no point tenderness in the back with palpation down the spine in both the thoracic and lumbar region. He has normal flexion and extension in the thoracic region as well. He has normal muscle strength testing in bilateral upper and lower extremities. Extremities: Trace edema with full and equal pulse bilateral upper and lower extremities. Psychiatric: Mood and affect appear appropriate. Neurologic: No focal neurological deficits. LABORATORY STUDIES: Hematology: White blood cells 7.2, hemoglobin 10.3, hematocrit 32, platelet count 270. ESR is 91. Chemistries: Sodium 131, potassium 3.8, chloride 97, CO2 27, BUN 26, creatinine 1.34, fasting glucose 157, calcium 8.5, magnesium 2.1. C-reactive protein 17.5. Microbiology: Blood culture on 08/01/2020 positive for Staphylococcus hominis. Second blood culture 08/01/2020 negative for any growth. Repeat on 08/02/2020 negative times two. ASSESSMENT AND PLAN: 1. Gram-positive bacteremia. Patient had positive blood culture for Staphylococcus hominis species. However, this is only one culture out of four total, likely a contaminant, it is unlikely the patient actually has the gram- positive bacteremia. He has received vancomycin, recommend discontinuation of this. Additionally, the patient was suspected to have discitis as he had come in with back pain and then was found to have a positive culture for gram- positive microbe, however the patients symptomatology does not line up with discitis as his pain does not appear severe. He does have a CT with contrast that was ordered and currently pending. Will wait for the results and, if negative, discontinue vancomycin. 2. Fevers. Patient had originally presented with a fever, maximum temperature (T-max) of 102.7. The cause of his fevers is possibly due to a tick-borne illness. Will start the patient empirically on doxycycline and will order Lyme titers as well as Babesia for possible co-infection. Rather than discontinuing doxycycline on discharge, patient will have to followup for results of his Lyme titer. SOFY
[2020-08-06] MEDS: IPRATROPIUM 0.5MG/ALBUTEROL 2.5MG INH SOL UD 3ML (DUONEB) NEB PRN (16:30)
[2020-08-06] MEDS: DOCUSATE SODIUM 100 MG CAP PO SCH (20:14)
[2020-08-06] MEDS: RIVAROXABAN 20 MG TAB (XARELTO) PO SCH (20:15)
[2020-08-06] MEDS: MONTELUKAST 10 MG TAB PO SCH (20:15)
[2020-08-06 22:00] VITALS: BP 116/57
[2020-08-07] MEDS: guaiFENesin ER 600 MG TAB PO SCH ×2 (00:32→08:41)
[2020-08-07] MEDS: IPRATROPIUM 0.5MG/ALBUTEROL 2.5MG INH SOL UD 3ML (DUONEB) NEB PRN (00:55)
[2020-08-07] MEDS: ISOSORBIDE DIN (ISORDIL) 10 MG TAB PO SCH ×2 (02:00→09:08)
[2020-08-07] MEDS: SLF 3 ML SYR IV SCH (06:00)
[2020-08-07] MEDS: METOPROLOL TART 25 MG TABLET PO SCH ×2 (06:00)
[2020-08-07 07:18] LABS: BASO % 0.5 % (0.0-1.0); EOS # 0.1 10^3/uL (0.0-0.5); EOS % 1.3 % (0.0-3.0); HEMATOCRIT 31.9 % (42.0-52.0); HEMOGLOBIN 10.3 g/dl (13.5-17.5); LYMPH # 1.9 10^3/uL (1.5-5.0); LYMPH % 25.3 % (24.0-44.0); MEAN CORPUSCULAR HEMOGLOBIN 29.2 pg (27.0-33.0); MEAN CORPUSCULAR HGB CONC 32.3 g/dl (32.0-36.5); MEAN CORPUSCULAR VOLUME 90.4 fl (80.0-96.0); MONO # 0.8 10^3/uL (0.0-0.8); MONO % 11.2 % (0.0-5.0); NEUTROPHILS # 4.5 10^3/uL (1.5-8.5); PLATELET COUNT, AUTOMATED 328 10^3/uL (150-450); RED BLOOD COUNT 3.53 10^6/uL (4.30-6.10); WHITE BLOOD COUNT 7.4 10^3/uL (4.0-10.0)
[2020-08-07] MEDS: ADVAIR HFA 230/21MCG INHALER INH SCH (07:35)
[2020-08-07 07:41] LABS: CALCIUM LEVEL 8.8 MG/DL (8.8-10.2); CREATININE FOR GFR 1.36 MG/DL (0.70-1.30); GLOMERULAR FILTRATION RATE 55.3 (>49); MAGNESIUM LEVEL 2.3 MG/DL (1.8-2.4); POTASSIUM SERUM 4.1 MEQ/L (3.5-5.1); VANCOMYCIN RANDOM 14.6 UG/ML
[2020-08-07] MEDS ORDERED: DILA4TAB13 PO (08:18)
[2020-08-07] MEDS ORDERED: DOXY-350 PO (08:18)
[2020-08-07] MEDS ORDERED: CYCL-707 PO (08:18)
[2020-08-07] MEDS: MIRALAX *UNIT DOSE* 17GM PACKET PO SCH (08:39)
[2020-08-07] MEDS: HumaLOG INSULIN (NovoLOG) PER UNIT SC SCH (08:39)
[2020-08-07] MEDS: FEXOFENADINE 60 MG TAB PO SCH (08:40)
[2020-08-07] MEDS: FLECAINIDE 50MG TABLET PO SCH (08:40)
[2020-08-07] MEDS: VERAPAMIL 120 MG SR TAB PO SCH (08:40)
[2020-08-07] MEDS: VITAMIN D 1,000 INTERNATIONAL UNITS TABLET PO SCH (08:41)
[2020-08-07] MEDS: SERTRALINE 100 MG TAB PO SCH (08:41)
[2020-08-07] MEDS: CYCLOBENZAPRINE 10MG TABLET PO SCH (08:41)
[2020-08-07] MEDS: ASCORBIC ACID 500 MG TAB PO SCH (08:41)
[2020-08-07] MEDS: FERROUS SULFATE 325MG TAB PO SCH (08:41)
[2020-08-07] MEDS: PANTOPRAZOLE 40MG TAB (PROTONIX) PO SCH (08:41)
[2020-08-07] MEDS: DIGOXIN 0.25 MG TAB PO SCH (08:41)
[2020-08-07] MEDS: FLUTICASONE PROP 0.05% NASAL SPRAY 16 GM (FLONASE) NARES SCH (08:42)
[2020-08-07] MEDS ORDERED: DOXYCYCLINE HYCLATE 100MG TABLET PO ONE (09:00)
[2020-08-07 09:08] VITALS: BP 118/62
--- NOTE | 2020-08-07 17:50 | IPN ---
DATE: 08/06/2020 SUBJECTIVE: Patient has had no fever, no chills, pain in the scapular area bilaterally and paravertebral area in the cervical region, much improved especially when using Flexeril. No complaints of chills. PHYSICAL EXAMINATION: VITALS: Temperature 97.4, pulse 76 respiratory rate 20, blood pressure 129/70, 95% on room air. GENERAL: Awake, alert and oriented x3, answering questions appropriately. HEENT: No icterus. No jaundice. No JVD or thyromegaly. No cervical lymphadenopathy. Moist mucous membranes. Pupils round, reactive to light and accommodation. HEART: S1 and S2. Sinus rhythm. ABDOMEN: Obese, soft, nontender and nondistended. Positive bowel sounds. EXTREMITIES: No cyanosis or clubbing. Trace to 1+ pitting edema of bilateral lower extremities. MUSCULOSKELETAL: Able to flex and extend the neck, lateral rotation, there is no vertebral tenderness. LABORATORY DATA/IMAGING STUDIES: Have been reviewed. ASSESSMENT: This is a 70-year-old with a history of cervical disc disease, lumbar laminectomy, chronic arthritis, found to have a fever with concerns for discitis. He has a history of chronic A-fib on Flecainide, Diltiazem, Xarelto at bedtime, follows with Dr. Short. History of testicular cancer with recurrence, vena cava occlusion requiring metal clamp, laminectomies, orchiectomy, multiple DVTs on chronic anticoagulation, KUNAL/BiPAP, morbid obesity and Type 2 diabetes. CURRENT ISSUES: 1. Chronic neck and back pain. 2. Fever, rule out discitis, CT is negative. Patient is on Vancomycin and Ceftriaxone, currently on Vancomycin. 3. Leukocytosis secondary to steroids, given for prevention of adverse effects from contrast study for CT. 4. History of degenerative disc disease, cervical and thoracic spine. 5. History of testicular cancer. 6. Vena cava occlusion with metal clamp, on chronic Xarelto. MRI is contraindicated. 7. Multiple DVTs on chronic anticoagulation. 8. KUNAL on chronic BiPAP. 9. COPD with chronic bronchitis, stable. 10. Hypertension. 11. Atrial fibrillation on chronic Xarelto and Flecainide. 12. Acute kidney injury. PLAN: Patient had increased white count most likely due to steroids, given to prevent adverse effect from contrast given for his CT. CT with contrast is unremarkable. Still cannot include discitis. MRI recommended but unable to obtain due to metal clamp. Continue on Vancomycin for now despite elevation of white count. Defer to Dr. Greenwood. Acute kidney injury most likely secondary to Flector Patch given for pain medications. Patients diuretics and CR inhibitor have been held temporarily, may resume in the morning. Plans are for discharge in the morning. Oral antibiotics to be decided by Dr. Greenwood. Avoid other nephrotoxins. MTDD
[2020-08-09 12:08] LABS: BABESIA MICROTI PCR Negative (Negative); Lyme Disease IgG/IgM Antibodie <0.91 ISR (0.00-0.90); Lyme Disease IgM Ab Quantitati <0.80 index (0.00-0.79)
--- NOTE | 2020-08-22 12:34 | DSES ---
DATE OF ADMISSION: 08/01/2020 DATE OF DISCHARGE: 08/07/2020 CREDIT PRODUCT ANALYST: Dr. Keila Greenwood. PRIMARY DISCHARGE DIAGNOSES: * Fever or unknown origin. * Chronic cervical and thoracic vertebral pain. * History of cervical disc disease. * Acute kidney injury due to Flector patch. * History of congestive heart failure, diastolic dysfunction. * Contaminated blood culture with Staph hominis. * History of testicular cancer with recurrence status post orchiectomy complicated by vena caval occlusion with metal clamp on chronic anticoagulation. * History of obstructive sleep apnea on Bi-PAP. * Atrial fibrillation on chronic Xarelto and flecainide. 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 DISCHARGE MEDICATIONS: * Doxycycline 100 mg b.i.d. * Cyclobenzaprine 10 mg t.i.d. * Hydromorphone 4 mg q.4 as needed for pain. * Albuterol two puffs inhaled as needed. * Ascorbic acid 500 daily. * Refresh one drop OP daily. * Vitamin D 2,000 units daily. * Digoxin 250 mcg daily. * Colace 200 at bedtime. * Nexium 40 daily. * Exenatide 2 mg subcu every seven days. * Ferrous sulfate 325 daily. * Fexofenadine 180 daily. * Flecainide 100 mg daily. * Lasix 40 q.p.m. and 80 q.a.m. * Hydrocodone/acetaminophen one tab q.6 as needed. * Losartan 50 daily. * Lovastatin 10 mg twice a week. * Meclizine 25 t.i.d. as needed. * Metformin 500 daily. * Nasonex one spray as needed. * Montelukast 10 q.h.s. * Polyethylene glycol 17 grams daily. * Pyridoxine 100 b.i.d. * Xarelto 20 at bedtime. * Advair Diskus one puff b.i.d. * Senokot 8.6 p.o. b.i.d. * Advair one puff inhaled b.i.d. * Zoloft 100 daily. * Spironolactone 12.5 daily. * Cialis 20 as directed. * Tizanidine 40 t.i.d. * Verapamil 240 b.i.d. * Vitamin E 400 units daily. DISCHARGE INSTRUCTIONS: Patient is to follow up with Dr. Greenwood to discuss Lyme disease and Lyme results, PCP with a week of discharge. Avoid NSAIDs due to recent acute kidney injury. HOSPITAL COURSE: This is a 70-year-old male who presented to the emergency room on 08/01/2020 with a fever of 102 and neck and back pain and stiffness with no relief with tizanidine that started on Friday and was worsened over three days. Patient was admitted for presumed thoracic discitis and started on IV vanco and ceftriaxone. Blood culture grew out gram-positive bacteremia. Two more sets of blood cultures were obtained. Infectious disease specialist, Dr. Greenwood, was consulted. CT of the cervical spine and neck were unremarkable. CT with contrast could not rule out discitis or osteomyelitis. Lyme titers were sent. Patient had allergy to contract and was given prednisone with increase in white count to 12.9 with no fever or chills. Patient then was stable with acute kidney injury due to Flector patch given for pain with peak creatinine of 1.84. Patient's diuretics and CR inhibitor were held during the acute kidney injury which resolved back down 1.36 on the day of discharge. Patient was advised not to take any nonsteroidal anti-inflammatories as outpatient and to follow up with Dr. Greenwood in a week. He is to complete 10 days of doxycycline. PHYSICAL EXAMINATION ON DISCHARGE: Temperature 97.5, pulse 80, respiratory rate 18, blood pressure 117/62, 95% on room air. Generally, patient is awake, alert, and oriented x3. No neck stiffness. Negative Brudzinski or Kernigs sign. No JVD or thyromegaly. Lungs were clear to auscultation without wheezing, rales, or rhonchi. Heart: S1 and S2 were regularly irregular. Abdomen was obese, soft, nontender, nondistended. Positive bowel sounds. Extremities: 1+ pitting edema. Chronic venous changes. LABORATORY DATA ON DISCHARGE: White count 7.4, hemoglobin 10, hematocrit 31, platelet count 328. Sodium 139, potassium 4, chloride 106, bicarb 26, BUN 37, creatinine 1.36, glucose 155. Blood culture on 08/01, Staph hominis. Second culture on 08/01 no growth, and 08/02 blood cultures no growth after five days. IMAGING STUDIES: Cervical spine CT: Straightening of the cervical lordotic curve could be secondary to muscle spasm or positioning. Spondylosis with appearance of multilevel spinal stenosis. Disc and integrity of the cord could be better evaluated by MRI if clinically appropriate. Chest CT 08/01/2020: Liver is fatty in density. No gross lymphadenopathy. Lungs have minor scarring, otherwise clear. Shoulder x-ray 08/02/2020: No acute fracture dislocation. Moderate to severe osteoarthritis of the right glenohumeral joint. Severe degenerative change at the acromioclavicular joint with large amount of hypertrophic calcification dorsally at the joint. The lungs were clear. Neck CT: No abscess. Discitis could be excluded with MRI if clinically relevant. Multilevel degenerative disc disease with central foraminal stenosis C5 to C7. A 1.4 cm low density lesion right lobe of the thyroid. No follow up is recommended. Thoracic spine CT with contrast: No significant thoracic endplate irregularity to suggest osteomyelitis. MRI recommended. Mild anterolisthesis of C7 on T1. Mild narrowing of the thecal sac at T5-T6, T6-T7, T7-T8, and T8-T9. TIME SPENT ON DISCHARGE: 30 minutes. MTDD
== END 2020-08-07 10:40 | disposition home or self-care (01) | DRG 552 ==
LOC: M ED 10:09 → M ED INP 17:39 → ENRESERV 21:23 → M PCU 22:04 → M MS5PR 08-03 00:43
PROVIDERS: ADMIT General Practice; ATTEND General Practice
DX: M54.2 Cervicalgia (principal); Z68.42 Body mass index [BMI] 45.0-49.9, adult; I48.20 Chronic atrial fibrillation, unspecified; N17.9 Acute kidney failure, unspecified; E87.1 Hypo-osmolality and hyponatremia; I50.32 Chronic diastolic (congestive) heart failure; R50.9 Fever, unspecified; E66.01 Morbid (severe) obesity due to excess calories; G47.33 Obstructive sleep apnea (adult) (pediatric); Z79.01 Long term (current) use of anticoagulants; Z79.899 Other long term (current) drug therapy; M19.011 Primary osteoarthritis, right shoulder; J45.909 Unspecified asthma, uncomplicated; Z85.47 Personal history of malignant neoplasm of testis; E11.40 Type 2 diabetes mellitus with diabetic neuropathy, unspecified; Z87.891 Personal history of nicotine dependence; Z86.718 Personal history of other venous thrombosis and embolism; Z88.8 Allergy status to other drugs, medicaments and biological substances; M54.5 Low back pain

== ENCOUNTER → 2020-11-10 | Outpatient (CLI) | payer MEDICARE, OTHER ==
[~2020-11-10] MED LIST changes: +ASCO500T PO; +BYDU2INJ7 SC; +CALA240T PO; +CIAL20TA PO; +CYCL-707 PO; +D31000TA2 PO; +DILA4TAB13 PO; +DOXY-350 PO; +FLEC1TAB PO; +FURO40TA2 PO; +MECL1TAB31 PO; +METF-838 PO; +SENO8.6T5 PO; +TIZA4TAB4 PO
[2020-11-10 16:35] LABS: HEMATOCRIT 40.4 % (42.0-52.0); HEMOGLOBIN 12.3 g/dl (13.5-17.5); MEAN CORPUSCULAR HEMOGLOBIN 28.1 pg (27.0-33.0); MEAN CORPUSCULAR HGB CONC 30.4 g/dl (32.0-36.5); MEAN CORPUSCULAR VOLUME 92.4 fl (80.0-96.0); PLATELET COUNT, AUTOMATED 301 10^3/uL (150-450); RED BLOOD COUNT 4.37 10^6/uL (4.30-6.10); WHITE BLOOD COUNT 7.1 10^3/uL (4.0-10.0)
[2020-11-10 16:52] LABS: ALBUMIN 3.8 GM/DL (3.2-5.2); ALT/SGPT 29 U/L (12-78); BILIRUBIN,TOTAL 0.7 MG/DL (0.2-1.0); BLOOD UREA NITROGEN 18 MG/DL (7-18); CALCIUM LEVEL 9.9 MG/DL (8.8-10.2); CARBON DIOXIDE LEVEL 31 MEQ/L (21-32); CHLORIDE LEVEL 101 MEQ/L (98-107); CREATININE FOR GFR 1.18 MG/DL (0.70-1.30); GLOMERULAR FILTRATION RATE > 60.0 (>49); GLUCOSE, FASTING 143 MG/DL (70-100); NT-PRO BNP 40 PG/ML (<125); POTASSIUM SERUM 4.1 MEQ/L (3.5-5.1); SODIUM LEVEL 138 MEQ/L (136-145); TOTAL PROTEIN 7.7 GM/DL (6.4-8.2)
== END ==
LOC: M WUC 11:51
PROVIDERS: ATTEND Internal Medicine Cardiovascular Disease
DX: I48.0 Paroxysmal atrial fibrillation (principal); I11.9 Hypertensive heart disease without heart failure

== ENCOUNTER → 2021-02-21 | Outpatient (CLI) | payer MEDICARE, OTHER ==
[2021-02-21 16:20] LABS: BASO # 0.1 10^3/uL (0.0-0.2); BASO % 0.6 % (0.0-1.0); EOS # 0.1 10^3/uL (0.0-0.5); EOS % 1.2 % (0.0-3.0); HEMATOCRIT 41.2 % (42.0-52.0); HEMOGLOBIN 12.8 g/dl (13.5-17.5); LYMPH # 1.8 10^3/uL (1.5-5.0); LYMPH % 19.7 % (24.0-44.0); MEAN CORPUSCULAR HEMOGLOBIN 28.6 pg (27.0-33.0); MEAN CORPUSCULAR HGB CONC 31.1 g/dl (32.0-36.5); MEAN CORPUSCULAR VOLUME 92.2 fl (80.0-96.0); MONO % 10.1 % (2.0-8.0); NEUTROPHILS # 6.4 10^3/uL (1.5-8.5); NEUTROPHILS % 68.2 % (36.0-66.0); PLATELET COUNT, AUTOMATED 309 10^3/uL (150-450); RED BLOOD COUNT 4.47 10^6/uL (4.30-6.10); WHITE BLOOD COUNT 9.4 10^3/uL (4.0-10.0)
== END ==
LOC: M WUC 13:31
PROVIDERS: ATTEND Internal Medicine Gastroenterology
DX: D50.9 Iron deficiency anemia, unspecified (principal)

== ENCOUNTER → 2021-03-02 | Outpatient (CLI) | payer MEDICARE, OTHER ==
[~2021-03-02] MED LIST changes: +EPLE25TA PO; +FURO20TA2 PO; -OPTI0.5D5 OP; +OPTI0.5D5 OU
== END ==
LOC: M LABSMTC 10:17
PROVIDERS: ATTEND Anesthesiology
DX: Z01.812 Encounter for preprocedural laboratory examination (principal)

== ENCOUNTER 2021-03-07 07:13 | Day surgery (SDC) | payer MEDICARE, OTHER ==
[~2021-03-07] VITALS: Ht 177.8 cm; Wt 148.3 kg
[~2021-03-07 07:13] MED LIST changes: +NS 1,000 ML IV ONE
[2021-03-07] MEDS ORDERED: LIDOCAINE 2% 100MG/5ML SDV (FOR ANES.) As Ordered ONE (08:26)
[2021-03-07] MEDS ORDERED: propofoL 200 MG/20 ML VIAL As Ordered ONE (08:26)
--- NOTE | 2021-03-07 09:07 | ROOR ---
Patient Name: Ambrosio Aguillon Procedure Date: 03/07/2021 8:40 AM Date of : 1950 Age: 70 Room: [facility] Gender: Male Note Status: Finalized Procedure: Total Colonoscopy to Cecum + Biopsy Polypectomy Indications: High risk colon cancer surveillance: Personal history of colonic polyps, High risk colon cancer surveillance: Personal history of adenoma with villous component Providers: Newton Saunders MD Referring MD: Cole Gregorio MD Requesting Provider: Medicines: Monitored Anesthesia Care Complications: No immediate complications. Procedure: Pre-Anesthesia Assessment: - The heart rate, respiratory rate, oxygen saturations, blood pressure, adequacy of pulmonary ventilation, and response to care were monitored throughout the procedure. The Colonoscope was introduced through the anus and advanced to the cecum, identified by appendiceal orifice and ileocecal valve. The colonoscopy was performed without difficulty. The patient tolerated the procedure well. The quality of the bowel preparation was good. Findings: The perianal and digital rectal examinations were normal. Non-bleeding internal hemorrhoids were found during retroflexion. The hemorrhoids were small and Grade I (internal hemorrhoids that do not prolapse). Multiple sessile polyps were found in the entire colon. The polyps were small in size. These polyps were removed with a jumbo cold forceps. Resection and retrieval were complete. The exam was otherwise without abnormality on direct and retroflexion views. Impression: - Non-bleeding internal hemorrhoids. - Multiple small polyps in the entire colon, removed with a jumbo cold forceps. Resected and retrieved. - The examination was otherwise normal on direct and retroflexion views. - The exam was otherwise normal to the cecum. Recommendation: - Patient has a contact number available for emergencies. The signs and symptoms of potential delayed complications were discussed with the patient. Return to normal activities tomorrow. Written discharge instructions were provided to the patient. - High fiber diet. - Discharge patient to home. - Continue present medications. - Await pathology results. - Telephone GI clinic for pathology results in 1 week. - Repeat colonoscopy in 3 years for surveillance. - Return to referring physician. - The findings and recommendations were discussed with the patient. Procedure Code(s): --- Professional --- 77308, Colonoscopy, flexible; with biopsy, single or multiple Diagnosis Code(s): --- Professional --- K64.0, First degree hemorrhoids K63.5, Polyp of colon Z86.010, Personal history of colonic polyps CPT copyright 2019 [employer]. All rights reserved. The codes documented in this report are preliminary and upon head boys golf coach review may be revised to meet current compliance requirements. Newton Saunders MD Newton Saunders MD 03/07/2021 9:07:00 AM Electronically signed by Newton Saunders MD Number of Addenda: 0 Note Initiated On: 03/07/2021 8:40 AM Estimated Blood Loss: Estimated blood loss: none.
[2021-03-07 09:25] VITALS: BP 143/76
== END 2021-03-07 09:42 | disposition home or self-care (01) ==
LOC: M OPP 07:13
PROVIDERS: ATTEND Internal Medicine Gastroenterology
DX: D12.6 Benign neoplasm of colon, unspecified (principal); Z86.010 Personal history of colon polyps; K64.0 First degree hemorrhoids; Z79.899 Other long term (current) drug therapy; Z91.041 Radiographic dye allergy status; Z91.048 Other nonmedicinal substance allergy status; Z88.8 Allergy status to other drugs, medicaments and biological substances

== ENCOUNTER → 2021-03-14 | Outpatient (CLI) | payer MEDICARE, OTHER ==
[~2021-03-14] MED LIST changes: -NS 1,000 ML IV ONE
[2021-03-14 20:11] LABS: ALBUMIN 3.8 GM/DL (3.2-5.2); ALT/SGPT 28 U/L (12-78); BILIRUBIN,TOTAL 0.7 MG/DL (0.2-1.0); BLOOD UREA NITROGEN 23 MG/DL (7-18); CALCIUM LEVEL 9.2 MG/DL (8.8-10.2); CARBON DIOXIDE LEVEL 30 MEQ/L (21-32); CHLORIDE LEVEL 101 MEQ/L (98-107); CREATININE FOR GFR 1.13 MG/DL (0.70-1.30); GLOMERULAR FILTRATION RATE > 60.0 (>49); GLUCOSE, FASTING 120 MG/DL (70-100); POTASSIUM SERUM 3.9 MEQ/L (3.5-5.1); SODIUM LEVEL 138 MEQ/L (136-145); TOTAL PROTEIN 7.6 GM/DL (6.4-8.2)
== END ==
LOC: M WUC 15:34
PROVIDERS: ATTEND Internal Medicine Cardiovascular Disease
DX: I48.0 Paroxysmal atrial fibrillation (principal)

== ENCOUNTER → 2021-12-28 | Outpatient (CLI) | payer MEDICARE, OTHER ==
[~2021-12-28] MED LIST changes: +LOSA50TA28 PO; -LOSA50TA88 PO; -MOME50SP; +NASO50SP3; +TIZA10TA PO; -TIZA4TAB4 PO
[2021-12-28 15:56] LABS: BASO % 0.5 % (0.0-1.0); EOS # 0.1 10^3/uL (0.0-0.5); EOS % 1.3 % (0.0-3.0); LYMPH # 1.5 10^3/uL (1.5-5.0); MEAN CORPUSCULAR HEMOGLOBIN 27.7 pg (27.0-33.0); MEAN CORPUSCULAR HGB CONC 30.8 g/dl (32.0-36.5); MEAN CORPUSCULAR VOLUME 90.1 fl (80.0-96.0); MONO # 0.7 10^3/uL (0.0-0.8); MONO % 8.8 % (2.0-8.0); NEUTROPHILS # 5.2 10^3/uL (1.5-8.5); NEUTROPHILS % 69.1 % (36.0-66.0); PLATELET COUNT, AUTOMATED 317 10^3/uL (150-450); RED BLOOD COUNT 4.33 10^6/uL (4.30-6.10); WHITE BLOOD COUNT 7.6 10^3/uL (4.0-10.0)
[2021-12-28 16:27] LABS: ALBUMIN 3.7 GM/DL (3.2-5.2); ALT/SGPT 29 U/L (12-78); BILIRUBIN,TOTAL 0.7 MG/DL (0.2-1.0); BLOOD UREA NITROGEN 22 MG/DL (7-18); CALCIUM LEVEL 9.4 MG/DL (8.8-10.2); CARBON DIOXIDE LEVEL 30 MEQ/L (21-32); CHLORIDE LEVEL 103 MEQ/L (98-107); CREATININE FOR GFR 1.13 MG/DL (0.70-1.30); GLOMERULAR FILTRATION RATE > 60.0 (>42); GLUCOSE, FASTING 139 MG/DL (70-100); NT-PRO BNP 47 PG/ML (<125); POTASSIUM SERUM 3.6 MEQ/L (3.5-5.1); SODIUM LEVEL 139 MEQ/L (136-145); TOTAL PROTEIN 7.4 GM/DL (6.4-8.2)
== END ==
LOC: M WUC 11:26
PROVIDERS: ATTEND Internal Medicine Cardiovascular Disease
DX: I48.0 Paroxysmal atrial fibrillation (principal); I34.0 Nonrheumatic mitral (valve) insufficiency; R94.31 Abnormal electrocardiogram [ECG] [EKG]; I50.32 Chronic diastolic (congestive) heart failure

== ENCOUNTER → 2022-03-06 | Outpatient (CLI) | payer MEDICARE, OTHER ==
[~2022-03-06] MED LIST changes: -D31000TA2 PO; +VITA100093 PO
[2022-03-06 16:02] LABS: HEMATOCRIT 38.9 % (42.0-52.0); HEMOGLOBIN 11.9 g/dl (13.5-17.5); MEAN CORPUSCULAR HEMOGLOBIN 27.7 pg (27.0-33.0); MEAN CORPUSCULAR HGB CONC 30.6 g/dl (32.0-36.5); MEAN CORPUSCULAR VOLUME 90.7 fl (80.0-96.0); PLATELET COUNT, AUTOMATED 295 10^3/uL (150-450); RED BLOOD COUNT 4.29 10^6/uL (4.30-6.10); WHITE BLOOD COUNT 8.3 10^3/uL (4.0-10.0)
[2022-03-06 16:18] LABS: HEMOGLOBIN A1c 7.6 %
[2022-03-06 16:31] LABS: ALBUMIN 3.8 GM/DL (3.2-5.2); ALT/SGPT 34 U/L (12-78); BILIRUBIN,TOTAL 0.5 MG/DL (0.2-1.0); BLOOD UREA NITROGEN 18 MG/DL (7-18); CALCIUM LEVEL 9.2 MG/DL (8.8-10.2); CARBON DIOXIDE LEVEL 31 MEQ/L (21-32); CHLORIDE LEVEL 103 MEQ/L (98-107); CHOLESTEROL LEVEL 188 MG/DL (<200); CHOLESTEROL RISK RATIO 3.133 (<5); CREATININE FOR GFR 1.12 MG/DL (0.70-1.30); GLOMERULAR FILTRATION RATE > 60.0 (>42); GLUCOSE, FASTING 150 MG/DL (70-100); HDL CHOLESTEROL 60 MG/DL (>40); LDL CHOLESTEROL 104 MG/DL (<100); NON-HDL-C 128 MG/DL; POTASSIUM SERUM 4.2 MEQ/L (3.5-5.1); SODIUM LEVEL 139 MEQ/L (136-145); TOTAL PROTEIN 7.2 GM/DL (6.4-8.2); TRIGLYCERIDES LEVEL 122 MG/DL (<150)
== END ==
LOC: M WUC 13:30
PROVIDERS: ATTEND Family Medicine
DX: E11.9 Type 2 diabetes mellitus without complications (principal)

== ENCOUNTER → 2022-05-15 | Outpatient (CLI) | payer MEDICARE, OTHER | LOC: M PLALAB 11:54 | PROVIDERS: ATTEND Family Medicine | DX: M54.2 Cervicalgia (principal) ==

== ENCOUNTER 2022-11-14 12:44 | Emergency (ER) | payer MEDICARE, OTHER ==
[~2022-11-14] VITALS: Ht 177.8 cm; Wt 139.1 kg
[~2022-11-14 12:44] MED LIST changes: -DOXY-350 PO; +DOXY-444 PO
[2022-11-14] MEDS ORDERED: FAMO40TA3 PO (13:09)
[2022-11-14] MEDS ORDERED: VITA50TA47 PO (13:09)
[2022-11-14] MEDS ORDERED: XARE20TA PO (13:09)
[2022-11-14] MEDS ORDERED: NYSTOI TOP (13:09)
[2022-11-14] MEDS ORDERED: IMIQ5CRE8 (13:09)
[2022-11-14] MEDS ORDERED: NEXI40CA PO (13:09)
[2022-11-14 19:13] LABS: BASO % 0.4 % (0.0-1.0); EOS % 0.4 % (0.0-3.0); HEMOGLOBIN 12.5 g/dl (13.5-17.5); LYMPH # 0.9 10^3/uL (1.5-5.0); LYMPH % 18.2 % (24.0-44.0); MEAN CORPUSCULAR HEMOGLOBIN 27.5 pg (27.0-33.0); MEAN CORPUSCULAR HGB CONC 31.3 g/dl (32.0-36.5); MEAN CORPUSCULAR VOLUME 88.1 fl (80.0-96.0); MONO # 0.5 10^3/uL (0.0-0.8); MONO % 10.7 % (2.0-8.0); NEUTROPHILS # 3.5 10^3/uL (1.5-8.5); NEUTROPHILS % 69.9 % (36.0-66.0); PLATELET COUNT, AUTOMATED 282 10^3/uL (150-450); RED BLOOD COUNT 4.54 10^6/uL (4.30-6.10); WHITE BLOOD COUNT 4.9 10^3/uL (4.0-10.0)
[2022-11-14 19:28] LABS: BILIRUBIN,DIRECT 0.1 MG/DL (<0.4)
[2022-11-14 19:29] LABS: INR 1.18; PARTIAL THROMBOPLASTIN TIME 28.1 SECONDS (24.8-34.2); PROTHROMBIN TIME 15.3 SECONDS (12.5-14.5)
[2022-11-14 19:32] LABS: MB/CK RELATIVE INDEX 0.7 (< OR =4)
[2022-11-14 19:33] LABS: THYROID STIMULATING HORMONE 0.991 uIU/ML (0.55-4.78)
[2022-11-14 19:38] LABS: ALBUMIN 3.7 G/DL (3.2-5.2); ALKALINE PHOSPHATASE 78 U/L (46-116); ALT/SGPT 39 U/L (7.0-40); AST/SGOT 59 U/L (<34); BILIRUBIN,TOTAL 0.5 MG/DL (0.3-1.2); BLOOD UREA NITROGEN 22 MG/DL (9-23); CALCIUM LEVEL 9.1 MG/DL (8.3-10.6); CARBON DIOXIDE LEVEL 23 MMOL/L (20-31); CHLORIDE LEVEL 97 MMOL/L (98-107); CPK CREATINE PHOSPHOKINASE 143 U/L (46-171); CREATININE FOR GFR 1.15 MG/DL (0.70-1.30); GLOMERULAR FILTRATION RATE > 60.0 (>42); GLUCOSE, FASTING 142 MG/DL (74-106); LIPASE 57 U/L (12-53); MB/CK RELATIVE INDEX 0.69 (< OR =4); POTASSIUM SERUM 4.4 MMOL/L (3.5-5.1); SODIUM LEVEL 138 MMOL/L (136-145); TOTAL PROTEIN 7.1 G/DL (5.7-8.2)
[2022-11-14] MEDS ORDERED: ISOVUE-370 76% 100ML VIAL As Ordered ONE (19:50)
[2022-11-14] MEDS ORDERED: diphenhydrAMINE 50MG/ML VIAL IV STA (19:54)
[2022-11-14] MEDS ORDERED: methylPREDNISolone 125MG 2ML VIAL IV ONE (19:55)
[2022-11-14] MEDS ORDERED: NS 500 ML IV ONE (20:10)
[2022-11-14 20:48] LABS: RSV AMPLIFICATION NEGATIVE (NEGATIVE)
[2022-11-14 22:58] VITALS: BP 140/66
== END 2022-11-14 23:15 | disposition home or self-care (01) ==
LOC: M ED 12:44
DX: E04.1 Nontoxic single thyroid nodule (principal); R53.1 Weakness; R06.02 Shortness of breath; I44.0 Atrioventricular block, first degree; I25.2 Old myocardial infarction; I10 Essential (primary) hypertension; J44.9 Chronic obstructive pulmonary disease, unspecified; Z86.79 Personal history of other diseases of the circulatory system; Z91.041 Radiographic dye allergy status; Z91.048 Other nonmedicinal substance allergy status; Z79.51 Long term (current) use of inhaled steroids; Z79.4 Long term (current) use of insulin; Z79.899 Other long term (current) drug therapy; Z79.811 Long term (current) use of aromatase inhibitors
CPT/HCPCS: 70450; 71045; 71275; 80048; 80076; 81002; 82550; 82553; 83690; 84443; 84484; 85025; 85610; 85730; 87040; 87631; 93005; 93041; 93970; 94760; 96361; 96374; 99285; J1200; J2930; Q9967

== ENCOUNTER → 2022-12-09 | Outpatient (CLI) | payer OTHER ==
[~2022-12-09] MED LIST changes: +FAMO40TA3 PO; +IMIQ5CRE8; +NYSTOI TOP; +VITA50TA47 PO
== END ==
LOC: M RAD 14:10
DX: M54.16 Radiculopathy, lumbar region (principal); M96.1 Postlaminectomy syndrome, not elsewhere classified; M48.061 Spinal stenosis, lumbar region without neurogenic claudication; M48.07 Spinal stenosis, lumbosacral region; M25.78 Osteophyte, vertebrae

== ENCOUNTER → 2022-12-18 | Outpatient (CLI) | payer MEDICARE, OTHER | LOC: M RAD 13:19 | PROVIDERS: ATTEND Family Medicine | DX: E07.9 Disorder of thyroid, unspecified (principal) ==

== ENCOUNTER → 2023-01-10 | Outpatient (CLI) | payer MEDICARE, OTHER ==
[~2023-01-10] MED LIST changes: +ISOVUE-370 76% 100ML VIAL As Ordered ONE
== END ==
LOC: M RAD 12-26 14:44
PROVIDERS: ATTEND Family Medicine
DX: R59.0 Localized enlarged lymph nodes (principal)
CPT/HCPCS: 74178; Q9967

== ENCOUNTER → 2023-03-04 | Outpatient (CLI) | payer MEDICARE, OTHER ==
[~2023-03-04] MED LIST changes: -ISOVUE-370 76% 100ML VIAL As Ordered ONE; +MONT-5 PO; -SING10TA32 PO
== END ==
LOC: M WUC 15:03
PROVIDERS: ATTEND Physician Assistant
DX: S63.512A Sprain of carpal joint of left wrist, initial encounter (principal); S63.8X2A Sprain of other part of left wrist and hand, initial encounter; M19.032 Primary osteoarthritis, left wrist; M18.9 Osteoarthritis of first carpometacarpal joint, unspecified; M19.042 Primary osteoarthritis, left hand

== ENCOUNTER → 2023-03-06 | Outpatient (REF) | payer MEDICARE, OTHER | LOC: M LAB REF 17:22 | PROVIDERS: ATTEND Internal Medicine Endocrinology, Diabetes & Metabolism | DX: E04.2 Nontoxic multinodular goiter (principal) ==

== ENCOUNTER → 2023-04-16 | Outpatient (CLI) | payer MEDICARE, OTHER ==
[~2023-04-16] MED LIST changes: +NYST100085 TOP; -NYSTOI TOP
== END ==
LOC: M RAD 14:46
PROVIDERS: ATTEND Surgery
DX: R22.9 Localized swelling, mass and lump, unspecified (principal)

== ENCOUNTER → 2023-04-25 | Outpatient (CLI) | payer MEDICARE, OTHER ==
[2023-04-25 17:59] LABS: BASO % 0.5 % (0.0-1.0); EOS # 0.1 10^3/uL (0.0-0.5); EOS % 1.5 % (0.0-3.0); HEMATOCRIT 37.2 % (42.0-52.0); HEMOGLOBIN 11.9 g/dl (13.5-17.5); LYMPH # 1.8 10^3/uL (1.5-5.0); LYMPH % 21.6 % (24.0-44.0); MEAN CORPUSCULAR HEMOGLOBIN 28.3 pg (27.0-33.0); MEAN CORPUSCULAR VOLUME 88.4 fl (80.0-96.0); MONO # 0.8 10^3/uL (0.0-0.8); MONO % 9.2 % (2.0-8.0); NEUTROPHILS # 5.7 10^3/uL (1.5-8.5); NEUTROPHILS % 66.8 % (36.0-66.0); PLATELET COUNT, AUTOMATED 328 10^3/uL (150-450); RED BLOOD COUNT 4.21 10^6/uL (4.30-6.10); WHITE BLOOD COUNT 8.5 10^3/uL (4.0-10.0)
[2023-04-25 18:03] LABS: ALKALINE PHOSPHATASE 72 U/L (46-116); ALT/SGPT 32 U/L (7.0-40); AST/SGOT 20 U/L (<34); BILIRUBIN,TOTAL 0.6 MG/DL (0.3-1.2); BLOOD UREA NITROGEN 16 MG/DL (9-23); CALCIUM LEVEL 9.3 MG/DL (8.3-10.6); CARBON DIOXIDE LEVEL 24 MMOL/L (20-31); CHLORIDE LEVEL 101 MMOL/L (98-107); CREATININE FOR GFR 0.93 MG/DL (0.70-1.30); GLOMERULAR FILTRATION RATE > 60.0 (>42); GLUCOSE, FASTING 137 MG/DL (74-106); POTASSIUM SERUM 3.4 MMOL/L (3.5-5.1); SODIUM LEVEL 139 MMOL/L (136-145); TOTAL PROTEIN 7.2 G/DL (5.7-8.2)
== END ==
LOC: M RAD 16:48
PROVIDERS: ATTEND Internal Medicine Cardiovascular Disease
DX: R06.02 Shortness of breath (principal); I50.32 Chronic diastolic (congestive) heart failure; I11.0 Hypertensive heart disease with heart failure; I34.0 Nonrheumatic mitral (valve) insufficiency; I27.81 Cor pulmonale (chronic); I48.0 Paroxysmal atrial fibrillation

== ENCOUNTER → 2023-08-01 | Outpatient (CLI) | payer MEDICARE, OTHER ==
[~2023-08-01] MED LIST changes: +ACET-683 PO; +DULA3PEN; +MECL-209 PO; -MECL1TAB31 PO; +METF-723 PO; +POTA8CAP10 PO; +TIRZ5PEN SQ; +[UNRECOGNIZED DRUG - OTHER] PO
[2023-08-01 19:49] LABS: BASO # 0.1 10^3/uL (0.0-0.2); BASO % 0.6 % (0.0-1.0); EOS # 0.1 10^3/uL (0.0-0.5); EOS % 1.6 % (0.0-3.0); HEMATOCRIT 38.1 % (42.0-52.0); HEMOGLOBIN 11.8 g/dl (13.5-17.5); LYMPH # 1.6 10^3/uL (1.5-5.0); LYMPH % 19.7 % (24.0-44.0); MEAN CORPUSCULAR HEMOGLOBIN 28.3 pg (27.0-33.0); MEAN CORPUSCULAR VOLUME 91.4 fl (80.0-96.0); MONO # 0.8 10^3/uL (0.0-0.8); MONO % 9.8 % (2.0-8.0); NEUTROPHILS # 5.4 10^3/uL (1.5-8.5); PLATELET COUNT, AUTOMATED 378 10^3/uL (150-450); RED BLOOD COUNT 4.17 10^6/uL (4.30-6.10); WHITE BLOOD COUNT 7.9 10^3/uL (4.0-10.0)
[2023-08-01 20:12] LABS: ALBUMIN 3.8 G/DL (3.2-5.2); BLOOD UREA NITROGEN 20 MG/DL (9-23); CALCIUM LEVEL 9.8 MG/DL (8.3-10.6); CARBON DIOXIDE LEVEL 27 MMOL/L (20-31); CHLORIDE LEVEL 101 MMOL/L (98-107); CREATININE FOR GFR 0.99 MG/DL (0.70-1.30); GLOMERULAR FILTRATION RATE > 60.0 (>42); GLUCOSE, FASTING 138 MG/DL (74-106); PHOSPHORUS LEVEL 3.2 MG/DL (2.4-5.1); POTASSIUM SERUM 3.8 MMOL/L (3.5-5.1); SODIUM LEVEL 138 MMOL/L (136-145)
[2023-08-01 20:16] LABS: FERRITIN 19.5 NG/ML (10.5-307.3)
== END ==
LOC: M WUC 11:50
PROVIDERS: ATTEND Internal Medicine Cardiovascular Disease
DX: I50.32 Chronic diastolic (congestive) heart failure (principal); D64.9 Anemia, unspecified; I11.0 Hypertensive heart disease with heart failure; I48.0 Paroxysmal atrial fibrillation

== ENCOUNTER → 2023-11-03 | Outpatient (CLI) | payer MEDICARE, OTHER ==
[~2023-11-03] MED LIST changes: +OPTI0.5D2 OU; -OPTI0.5D5 OU
[2023-11-03 18:32] LABS: BASO % 0.5 % (0.0-1.0); EOS # 0.2 10^3/uL (0.0-0.5); EOS % 1.8 % (0.0-3.0); HEMATOCRIT 40.8 % (42.0-52.0); HEMOGLOBIN 12.9 g/dl (13.5-17.5); LYMPH # 1.8 10^3/uL (1.5-5.0); LYMPH % 21.8 % (24.0-44.0); MEAN CORPUSCULAR HEMOGLOBIN 29.9 pg (27.0-33.0); MEAN CORPUSCULAR HGB CONC 31.6 g/dl (32.0-36.5); MEAN CORPUSCULAR VOLUME 94.7 fl (80.0-96.0); MONO # 0.9 10^3/uL (0.0-0.8); MONO % 11.3 % (2.0-8.0); NEUTROPHILS # 5.3 10^3/uL (1.5-8.5); NEUTROPHILS % 64.4 % (36.0-66.0); PLATELET COUNT, AUTOMATED 305 10^3/uL (150-450); RED BLOOD COUNT 4.31 10^6/uL (4.30-6.10); WHITE BLOOD COUNT 8.3 10^3/uL (4.0-10.0)
== END ==
LOC: M WUC 13:46
PROVIDERS: ATTEND Internal Medicine Cardiovascular Disease
DX: D64.9 Anemia, unspecified (principal); I50.32 Chronic diastolic (congestive) heart failure; I11.0 Hypertensive heart disease with heart failure; I27.23 Pulmonary hypertension due to lung diseases and hypoxia; I48.0 Paroxysmal atrial fibrillation

== ENCOUNTER 2024-01-07 09:05 | Day surgery (SDC) | payer MEDICARE, OTHER ==
[~2024-01-07] VITALS: Ht 177.8 cm; Wt 125.5 kg
[~2024-01-07 09:05] MED LIST changes: +ACID1TAB PO; +ALBU6.7H6 INH; +MOME17SP NS; +POTA1TAB23 PO; +TIRZ7.5P SQ; +VERA240T65 PO; +VITA500C24 PO
[2024-01-07] MEDS: NS 1,000 ML IV ONE (09:39)
[2024-01-07] MEDS ORDERED: propofoL 200 MG/20 ML VIAL As Ordered ONE (11:21)
[2024-01-07] MEDS ORDERED: LIDOCAINE 2% 100MG/5ML SDV (FOR ANES.) As Ordered ONE (11:22)
[2024-01-07 11:46] VITALS: TEMP 99.4
[2024-01-07 12:07] VITALS: BP 139/76; O2SAT 97
== END 2024-01-07 12:21 | disposition home or self-care (01) ==
LOC: M OPP 09:05
PROVIDERS: ATTEND Surgery
DX: D12.3 Benign neoplasm of transverse colon (principal); D12.4 Benign neoplasm of descending colon; K64.1 Second degree hemorrhoids; D50.9 Iron deficiency anemia, unspecified; K31.7 Polyp of stomach and duodenum; K29.70 Gastritis, unspecified, without bleeding; Z87.891 Personal history of nicotine dependence; I48.91 Unspecified atrial fibrillation; E11.9 Type 2 diabetes mellitus without complications; G47.30 Sleep apnea, unspecified; Z99.89 Dependence on other enabling machines and devices; Z79.01 Long term (current) use of anticoagulants; Z79.02 Long term (current) use of antithrombotics/antiplatelets; Z79.1 Long term (current) use of non-steroidal anti-inflammatories (NSAID); Z79.51 Long term (current) use of inhaled steroids; Z79.84 Long term (current) use of oral hypoglycemic drugs; Z79.811 Long term (current) use of aromatase inhibitors; Z79.891 Long term (current) use of opiate analgesic; Z79.899 Other long term (current) drug therapy; Z88.1 Allergy status to other antibiotic agents; Z88.8 Allergy status to other drugs, medicaments and biological substances; Z91.041 Radiographic dye allergy status; Z91.048 Other nonmedicinal substance allergy status

== ENCOUNTER → 2024-02-05 | Outpatient (CLI) | payer MEDICARE, OTHER | LOC: M RAD 10:07 | PROVIDERS: ATTEND Student in an Organized Health Care Education/Training Program | DX: M79.605 Pain in left leg (principal) ==

== ENCOUNTER → 2024-05-14 | Outpatient (REF) | payer MEDICARE, OTHER ==
[~2024-05-14] MED LIST changes: +DOXY-440 PO; -DOXY-444 PO; -EPLE25TA PO; +EPLE25TA2 PO
== END ==
LOC: M LABWUC 17:10
PROVIDERS: ATTEND Family Medicine
DX: R70.0 Elevated erythrocyte sedimentation rate (principal)

== ENCOUNTER → 2024-06-03 | Outpatient (CLI) | payer MEDICARE, OTHER ==
[~2024-06-03] MED LIST changes: +TIRZ10PE
[2024-06-03 16:58] LABS: BASO # 0.1 10^3/uL (0.0-0.2); BASO % 0.7 % (0.0-1.0); EOS # 0.2 10^3/uL (0.0-0.5); HEMATOCRIT 40.9 % (42.0-52.0); HEMOGLOBIN 13.2 g/dl (13.5-17.5); LYMPH # 1.9 10^3/uL (1.5-5.0); LYMPH % 21.8 % (24.0-44.0); MEAN CORPUSCULAR HEMOGLOBIN 30.9 pg (27.0-33.0); MEAN CORPUSCULAR HGB CONC 32.3 g/dl (32.0-36.5); MEAN CORPUSCULAR VOLUME 95.8 fl (80.0-96.0); MONO # 0.8 10^3/uL (0.0-0.8); MONO % 9.7 % (2.0-8.0); NEUTROPHILS # 5.7 10^3/uL (1.5-8.5); NEUTROPHILS % 65.6 % (36.0-66.0); PLATELET COUNT, AUTOMATED 365 10^3/uL (150-450); RED BLOOD COUNT 4.27 10^6/uL (4.30-6.10); WHITE BLOOD COUNT 8.7 10^3/uL (4.0-10.0)
[2024-06-03 17:20] LABS: C REACTIVE PROTEIN QUANTITATIV 0.6 MG/DL (<1.0)
[2024-06-03 17:21] LABS: PERCENT SATURATION 20.4 % (19.7-50.0)
[2024-06-03 17:23] LABS: FERRITIN 76.8 NG/ML (10.5-307.3)
== END ==
LOC: M WUC 13:19
PROVIDERS: ATTEND Specialist
DX: D50.9 Iron deficiency anemia, unspecified (principal)

== ENCOUNTER → 2024-07-08 | Outpatient (REF) | payer MEDICARE, OTHER | LOC: M LAB REF 17:06 | PROVIDERS: ATTEND Surgery | DX: L72.0 Epidermal cyst (principal) ==

== ENCOUNTER → 2024-07-28 | Outpatient (CLI) | payer MEDICARE, OTHER ==
[2024-07-28 17:20] LABS: HEMATOCRIT 39.5 % (42.0-52.0); HEMOGLOBIN 12.8 g/dl (13.5-17.5); MEAN CORPUSCULAR HGB CONC 32.4 g/dl (32.0-36.5); MEAN CORPUSCULAR VOLUME 95.6 fl (80.0-96.0); PLATELET COUNT, AUTOMATED 356 10^3/uL (150-450); RED BLOOD COUNT 4.13 10^6/uL (4.30-6.10); WHITE BLOOD COUNT 7.4 10^3/uL (4.0-10.0)
[2024-07-28 17:47] LABS: ALBUMIN 3.8 G/DL (3.2-5.2); ALKALINE PHOSPHATASE 77 U/L (46-116); ALT/SGPT 18 U/L (7.0-40); AST/SGOT < 8 U/L (<34); BILIRUBIN,TOTAL 0.4 MG/DL (0.3-1.2); BLOOD UREA NITROGEN 20 MG/DL (9-23); CALCIUM LEVEL 10.7 MG/DL (8.3-10.6); CARBON DIOXIDE LEVEL 28 MMOL/L (20-31); CHLORIDE LEVEL 108 MMOL/L (98-107); CREATININE FOR GFR 0.94 MG/DL (0.70-1.30); GLOMERULAR FILTRATION RATE > 60.0 (>42); GLUCOSE, FASTING 106 MG/DL (74-106); POTASSIUM SERUM 3.9 MMOL/L (3.5-5.1); SODIUM LEVEL 140 MMOL/L (136-145); TOTAL PROTEIN 7.1 G/DL (5.7-8.2)
== END ==
LOC: M WUC 11:24
PROVIDERS: ATTEND Internal Medicine Cardiovascular Disease
DX: I50.32 Chronic diastolic (congestive) heart failure (principal); I48.0 Paroxysmal atrial fibrillation; I49.3 Ventricular premature depolarization; I27.23 Pulmonary hypertension due to lung diseases and hypoxia; I11.0 Hypertensive heart disease with heart failure

== ENCOUNTER → 2024-11-29 | Outpatient (CLI) | payer MEDICARE, OTHER ==
[~2024-11-29] MED LIST changes: -ADV500INH INH; +ADVA1AER10 INH; -CELE1CAP88 PO; +CELE400C PO; +EPLE25TA15 PO; -EPLE25TA2 PO
[2024-11-29 19:19] LABS: BASO # 0.1 10^3/uL (0.0-0.2); BASO % 0.6 % (0.0-1.0); EOS # 0.2 10^3/uL (0.0-0.5); HEMATOCRIT 38.8 % (42.0-52.0); HEMOGLOBIN 12.7 g/dl (13.5-17.5); LYMPH % 23.1 % (24.0-44.0); MEAN CORPUSCULAR HEMOGLOBIN 30.8 pg (27.0-33.0); MEAN CORPUSCULAR HGB CONC 32.7 g/dl (32.0-36.5); MEAN CORPUSCULAR VOLUME 94.2 fl (80.0-96.0); MONO # 0.9 10^3/uL (0.0-0.8); NEUTROPHILS # 5.5 10^3/uL (1.5-8.5); NEUTROPHILS % 64.1 % (36.0-66.0); PLATELET COUNT, AUTOMATED 380 10^3/uL (150-450); RED BLOOD COUNT 4.12 10^6/uL (4.30-6.10); WHITE BLOOD COUNT 8.6 10^3/uL (4.0-10.0)
[2024-11-29 19:45] LABS: ALBUMIN 3.9 G/DL (3.2-5.2); ALKALINE PHOSPHATASE 69 U/L (40-129); ALT/SGPT 23 U/L (7.0-40); AST/SGOT 16 U/L (<34); BILIRUBIN,TOTAL 0.4 MG/DL (0.3-1.2); BLOOD UREA NITROGEN 18 MG/DL (9-23); CALCIUM LEVEL 10.4 MG/DL (8.3-10.6); CARBON DIOXIDE LEVEL 30 MMOL/L (20-31); CHLORIDE LEVEL 102 MMOL/L (98-107); GLOMERULAR FILTRATION RATE > 60.0 (>42); GLUCOSE, FASTING 99 MG/DL (74-106); IRON (FE) 87 UG/DL (65-175); PERCENT SATURATION 29.7 % (19.7-50.0); POTASSIUM SERUM 4.2 MMOL/L (3.5-5.1); SODIUM LEVEL 141 MMOL/L (136-145); TOTAL IRON BINDING CAPACITY 293 UG/DL (250-425); TOTAL PROTEIN 7.3 G/DL (5.7-8.2)
[2024-11-29 19:49] LABS: FERRITIN 45.3 NG/ML (10.5-307.3)
== END ==
LOC: M WUC 15:25
PROVIDERS: ATTEND Specialist
DX: D50.9 Iron deficiency anemia, unspecified (principal)

== ENCOUNTER → 2025-02-28 | Outpatient (CLI) | payer MEDICARE, OTHER ==
[~2025-02-28] MED LIST changes: +CARI-555 PO; -CARI1TAB7 PO; +ESOM40CA35; +FLUTISP; +SERTRALINE
== END ==
LOC: M CARPUL 15:44
PROVIDERS: ATTEND Registered Nurse
DX: I27.23 Pulmonary hypertension due to lung diseases and hypoxia (principal); I50.32 Chronic diastolic (congestive) heart failure

== ENCOUNTER → 2025-03-07 | Outpatient (CLI) | payer MEDICARE, OTHER ==
[2025-03-07 18:56] LABS: ALBUMIN 3.6 G/DL (3.2-5.2); CALCIUM LEVEL 9.9 MG/DL (8.3-10.6); CREATININE FOR GFR 0.92 MG/DL (0.70-1.30); GLOMERULAR FILTRATION RATE 87.8 (>42); PHOSPHORUS LEVEL 3.4 MG/DL (2.4-5.1); POTASSIUM SERUM 4.3 MMOL/L (3.5-5.1)
== END ==
LOC: M WUC 14:07
PROVIDERS: ATTEND Registered Nurse
DX: I50.32 Chronic diastolic (congestive) heart failure (principal)

== ENCOUNTER → 2025-06-06 | Outpatient (CLI) | payer MEDICARE, OTHER ==
[~2025-06-06] MED LIST changes: -BYDU2INJ7 SC; +EXEN2AUT SC; +METF-1113 PO; -METF-723 PO
[2025-06-06 18:58] LABS: BASO # 0.1 10^3/uL (0.0-0.2); BASO % 0.7 % (0.0-1.0); EOS # 0.1 10^3/uL (0.0-0.5); EOS % 1.7 % (0.0-3.0); LYMPH # 1.7 10^3/uL (1.5-5.0); LYMPH % 20.8 % (24.0-44.0); MONO # 0.8 10^3/uL (0.0-0.8); MONO % 9.9 % (2.0-8.0); NEUTROPHILS # 5.5 10^3/uL (1.5-8.5); NEUTROPHILS % 66.7 % (36.0-66.0); PLATELET COUNT, AUTOMATED 496 10^3/uL (150-450)
[2025-06-06 19:29] LABS: ALT/SGPT 16.0 U/L (7.0-40); AST/SGOT 17.0 U/L (<34); CALCIUM LEVEL 9.9 MG/DL (8.3-10.6); CARBON DIOXIDE LEVEL 23.0 MMOL/L (20-31); CHLORIDE LEVEL 103.0 MMOL/L (98-107); CREATININE FOR GFR 1.0 MG/DL (0.70-1.30); GLOMERULAR FILTRATION RATE 79.0 (>42); IRON (FE) 36.0 UG/DL (65-175); PERCENT SATURATION 10.6 % (19.7-50.0); POTASSIUM SERUM 4.4 MMOL/L (3.5-5.1); SODIUM LEVEL 141.0 MMOL/L (136-145)
[2025-06-06 19:31] LABS: VITAMIN B12 LEVEL 337.0 PG/ML (211-911)
== END ==
LOC: M WUC 14:30
PROVIDERS: ATTEND Specialist
DX: D50.9 Iron deficiency anemia, unspecified (principal)

== ENCOUNTER → 2025-08-02 | Outpatient (CLI) | payer MEDICARE, OTHER ==
[~2025-08-02] MED LIST changes: -METF-1113 PO; +METF-1201 PO; +SENN-225 PO; -SENO8.6T5 PO
[2025-08-02 18:46] LABS: BASO # 0.1 10^3/uL (0.0-0.2); BASO % 0.7 % (0.0-1.0); EOS # 0.2 10^3/uL (0.0-0.5); EOS % 2.2 % (0.0-3.0); LYMPH # 1.7 10^3/uL (1.5-5.0); LYMPH % 19.2 % (24.0-44.0); MONO # 0.8 10^3/uL (0.0-0.8); MONO % 9.4 % (2.0-8.0); NEUTROPHILS # 5.9 10^3/uL (1.5-8.5); NEUTROPHILS % 68.3 % (36.0-66.0); PLATELET COUNT, AUTOMATED 378 10^3/uL (150-450)
[2025-08-02 18:53] LABS: ALT/SGPT 21.0 U/L (7.0-40); AST/SGOT 17.0 U/L (<34); CALCIUM LEVEL 10.2 MG/DL (8.3-10.6); CARBON DIOXIDE LEVEL 27.0 MMOL/L (20-31); CHLORIDE LEVEL 103.0 MMOL/L (98-107); CREATININE FOR GFR 0.98 MG/DL (0.70-1.30); GLOMERULAR FILTRATION RATE 80.9 (>42); IRON (FE) 72.0 UG/DL (65-175); PERCENT SATURATION 26.1 % (19.7-50.0); POTASSIUM SERUM 4.2 MMOL/L (3.5-5.1); SODIUM LEVEL 140.0 MMOL/L (136-145)
[2025-08-02 18:55] LABS: VITAMIN B12 LEVEL 305.0 PG/ML (211-911)
== END ==
LOC: M WUC 14:00
PROVIDERS: ATTEND Specialist
DX: N50.811 Right testicular pain (principal); D50.9 Iron deficiency anemia, unspecified

== ENCOUNTER → 2025-08-23 | Outpatient (CLI) | payer MEDICARE, OTHER ==
[2025-08-23 18:42] LABS: BASO # 0.1 10^3/uL (0.0-0.2); BASO % 0.9 % (0.0-1.0); EOS # 0.2 10^3/uL (0.0-0.5); EOS % 2.4 % (0.0-3.0); LYMPH # 1.8 10^3/uL (1.5-5.0); LYMPH % 22.8 % (24.0-44.0); MONO # 0.7 10^3/uL (0.0-0.8); MONO % 9.5 % (2.0-8.0); NEUTROPHILS # 5.0 10^3/uL (1.5-8.5); NEUTROPHILS % 64.0 % (36.0-66.0); PLATELET COUNT, AUTOMATED 359 10^3/uL (150-450)
[2025-08-23 19:08] LABS: VITAMIN B12 LEVEL 326.0 PG/ML (211-911)
[2025-08-23 19:09] LABS: ALT/SGPT 19.0 U/L (7.0-40); AST/SGOT 15.0 U/L (<34); CALCIUM LEVEL 10.2 MG/DL (8.3-10.6); CARBON DIOXIDE LEVEL 27.0 MMOL/L (20-31); CHLORIDE LEVEL 101.0 MMOL/L (98-107); CREATININE FOR GFR 0.96 MG/DL (0.70-1.30); GLOMERULAR FILTRATION RATE 82.9 (>42); IRON (FE) 58.0 UG/DL (65-175); PERCENT SATURATION 20.8 % (19.7-50.0); POTASSIUM SERUM 4.3 MMOL/L (3.5-5.1); SODIUM LEVEL 136.0 MMOL/L (136-145)
== END ==
LOC: M WUC 14:41
PROVIDERS: ATTEND Specialist
DX: Z85.47 Personal history of malignant neoplasm of testis (principal); R59.0 Localized enlarged lymph nodes; D50.9 Iron deficiency anemia, unspecified

== ENCOUNTER → 2025-10-06 | Outpatient (CLI) | payer MEDICARE, OTHER ==
[~2025-10-06] MED LIST changes: +ASPI81CH33 PO
[2025-10-06 18:14] LABS: BASO # 0.1 10^3/uL (0.0-0.2); BASO % 0.8 % (0.0-1.0); EOS # 0.1 10^3/uL (0.0-0.5); EOS % 1.0 % (0.0-3.0); LYMPH # 1.3 10^3/uL (1.5-5.0); LYMPH % 17.9 % (24.0-44.0); MONO # 0.7 10^3/uL (0.0-0.8); MONO % 10.1 % (2.0-8.0); NEUTROPHILS # 5.1 10^3/uL (1.5-8.5); NEUTROPHILS % 69.9 % (36.0-66.0); PLATELET COUNT, AUTOMATED 548 10^3/uL (150-450)
[2025-10-06 18:43] LABS: ALT/SGPT 23.0 U/L (7.0-40); AST/SGOT 24.0 U/L (<34); CALCIUM LEVEL 9.4 MG/DL (8.3-10.6); CARBON DIOXIDE LEVEL 25.0 MMOL/L (20-31); CHLORIDE LEVEL 99.0 MMOL/L (98-107); CREATININE FOR GFR 0.98 MG/DL (0.70-1.30); GLOMERULAR FILTRATION RATE 80.9 (>42); POTASSIUM SERUM 4.3 MMOL/L (3.5-5.1); SODIUM LEVEL 139.0 MMOL/L (136-145)
[2025-10-06 18:47] LABS: APPEARANCE, URINE CLEAR (CLEAR); BACTERIA, URINE AUTO NEGATIVE (NEGATIVE); BILIRUBIN, URINE AUTO NEGATIVE (NEGATIVE); BLOOD, URINE BLOOD NEGATIVE (NEGATIVE); GLUCOSE, URINE (UA) AUTO NEGATIVE (NEGATIVE); KETONE, URINE AUTO NEGATIVE (NEGATIVE); LEUKOCYTE ESTERASE, URINE AUTO NEGATIVE (NEGATIVE); NITRITE, URINE AUTO NEGATIVE (NEGATIVE); PROTEIN, URINE AUTO NEGATIVE (NEGATIVE); RBC, URINE AUTO 1 /HPF (0-3); SPECIFIC GRAVITY URINE AUTO 1.010 (1.002-1.035); SQUAMOUS EPITHELIAL CELL UR AU 0 /HPF (0-6); UROBILINOGEN, URINE AUTO 0.2 mg/dL (0.0-2.0); WBC, URINE AUTO 3 /HPF (0-3)
== END ==
LOC: M WUC 15:26
PROVIDERS: ATTEND Family Medicine
DX: R05.9 Cough, unspecified (principal); R50.9 Fever, unspecified

== ENCOUNTER → 2025-10-29 | Outpatient (CLI) | payer MEDICARE, OTHER ==
[~2025-10-29] MED LIST changes: -CELE400C PO; +[UNRECOGNIZED DRUG - CODE] PO
== END ==
LOC: M EKG 13:02
PROVIDERS: ATTEND Internal Medicine Cardiovascular Disease
DX: I40.8 Other acute myocarditis (principal)

== ENCOUNTER → 2025-11-08 | Outpatient (CLI) | payer MEDICARE, OTHER ==
[2025-11-08 14:53] LABS: PLATELET COUNT, AUTOMATED 387 10^3/uL (150-450)
[2025-11-08 14:58] LABS: CALCIUM LEVEL 9.9 MG/DL (8.3-10.6); CARBON DIOXIDE LEVEL 31.0 MMOL/L (20-31); CHLORIDE LEVEL 101.0 MMOL/L (98-107); CREATININE FOR GFR 0.98 MG/DL (0.70-1.30); DIGOXIN LEVEL 1.2 NG/ML (0.8-2.0); GLOMERULAR FILTRATION RATE 80.9 (>42); MAGNESIUM LEVEL 2.0 MG/DL (1.8-2.4); POTASSIUM SERUM 4.1 MMOL/L (3.5-5.1); SODIUM LEVEL 142.0 MMOL/L (136-145)
== END ==
LOC: M WUC 10:42
PROVIDERS: ATTEND Nurse Practitioner Family
DX: R06.02 Shortness of breath (principal); I50.32 Chronic diastolic (congestive) heart failure; I48.0 Paroxysmal atrial fibrillation

== ENCOUNTER → 2025-11-11 | Outpatient (CLI) | payer MEDICARE, OTHER ==
[~2025-11-11] MED LIST changes: +ISOVUE-370 76% 100 ML VIAL As Ordered ONE
== END ==
LOC: M RAD 07:29
PROVIDERS: ATTEND Nurse Practitioner Family
DX: R06.02 Shortness of breath (principal); I51.7 Cardiomegaly; N20.0 Calculus of kidney; K42.9 Umbilical hernia without obstruction or gangrene
CPT/HCPCS: 71275; Q9967

== ENCOUNTER → 2025-11-14 | Outpatient (REF) | payer MEDICARE, OTHER ==
[~2025-11-14] MED LIST changes: -ISOVUE-370 76% 100 ML VIAL As Ordered ONE
== END ==
LOC: M LAB REF 14:27
PROVIDERS: ATTEND Nurse Practitioner Family
DX: I48.0 Paroxysmal atrial fibrillation (principal); I50.32 Chronic diastolic (congestive) heart failure; R06.02 Shortness of breath